=== PATIENT | female | born 1930 | race Hispanic/Latino ===

== ENCOUNTER 2016-07-09 12:07 | Inpatient (IN) | payer MEDICARE, OTHER ==
[2016-07-09 12:15] VITALS: BMI 17.2
[2016-07-09] MEDS ORDERED: guaiFENesin 200 mg/10 ml Syrup UD PO STA (12:37)
[2016-07-09] MEDS ORDERED: Ipratropium 0.02% Inhal Soln (0.5 mg/2.5 ml) UD IH STA ×2 (12:37)
[2016-07-09] MEDS ORDERED: Levalbuterol 1.25 MG/3 ML Inhal Soln UD IH STA ×2 (12:37)
--- NOTE | 2016-07-09 12:38 | ED PDOC ---
Arrival/HPI - General Chief Complaint: Shortness Of Breath Time Seen by Provider: 07/09/16 12:08 Historian: Patient - History of Present Illness Narrative History of Present Illness (Text): 07/09/16 12:34 86 year old female whose past medical history includes hypertension, coronary artery disease with stents s/p carotid endarterectomy, and remote history of breast cancer in remission presents to the emergency department with dyspnea on exertion, and lightheadedness worsening yesterday. She states she feels weak when she walks. She also reports cough with white phlegm. Patient states she vomited two hours ago. Denies fever, chills, abdominal pain, bloody stool or urine, or other symptoms. PMD: Dr. Wu Oncologist: Dr. Rios Time/Duration: < week Symptom Onset: Gradual Symptom Course: Unchanged Modifying Factors (Text): None Past Medical History - Provider Review Nursing Documentation Reviewed: Yes - Infectious Disease Hx of Infectious Diseases: None - Cardiac Hx Hypertension: Yes - Pulmonary Hx Respiratory Disorders: Yes Hx Bronchitis: Yes Hx Pneumonia: Yes - Neurological Hx Neurological Disorder: No - HEENT Hx HEENT Disorder: No (WEARS RX GLASSES) - Renal Hx Renal Disorder: No - Endocrine/Metabolic Hx Endocrine Disorders: No - Hematological/Oncological Hx Blood Disorders: Yes Hx Cancer: Yes (BREASTM CA CECAL CA) Hx Chemotherapy: Yes (and radiation 20 years ago) Other/Comment: RIGHT LIMB ALERT - Integumentary Hx Dermatological Disorder: No Other/Comment: RIGHT MATECTOMY - Musculoskeletal/Rheumatological Hx Falls: No - Gastrointestinal Hx Gastrointestinal Disorders: Yes (COLON CA,COLON RESECTION,) - Genitourinary/Gynecological Hx Genitourinary Disorders: No Hx Reproductive Disorders: No - Psychiatric Hx Psychophysiologic Disorder: No Hx Substance Use: No - Surgical History Hx Mastectomy: Yes (right) Other/Comment: POLYPS REMOVED COLON, VOCAL CHORD SX. - Anesthesia Hx Anesthesia: Yes Hx Anesthesia Reactions: No Hx Malignant Hyperthermia: No Family/Social History - Physician Review Nursing Documentation Reviewed: Yes Family/Social History: Unknown Family HX Smoking Status: Former Smoker Hx Alcohol Use: No Hx Substance Use: No Allergies/Home Meds Allergies/Adverse Reactions: Allergies Penicillins Allergy (Verified 07/09/16 12:15) RASH zolpidem Adverse Reaction (Verified 07/09/16 12:15) DIZZINESS Home Medications: Home Meds Medication Instructions Recorded Confirmed Aspirin 325 mg PO DAILY 04/23/15 06/18/15 Atorvastatin [Lipitor] 20 mg PO DAILY 06/14/15 06/18/15 amLODIPine [Norvasc] 10 mg PO DAILY 06/14/15 06/18/15 Review of Systems - Physician Review All systems were reviewed & negative as marked: Yes - Review of Systems Constitutional: absent: Fevers Respiratory: Cough Cardiovascular: LOZOYA Gastrointestinal: Vomiting. absent: Abdominal Pain, Hematochezia Genitourinary Female: absent: Dysuria, Hematuria Neurological: Other (Lightheadedness) Physical Exam Vital Signs Reviewed: Yes Vital Signs Temp Pulse Resp BP Pulse Ox 07/09/16 13:28 72 20 141/71 99 07/09/16 12:07 98.2 F 91 H 17 157/78 H 95 Temperature: Afebrile Blood Pressure: Normal Pulse: Regular Respiratory Rate: Normal Appearance: Positive for: Well-Appearing, Non-Toxic, Comfortable Pain Distress: None Mental Status: Positive for: Alert and Oriented X 3 - Systems Exam Head: Present: Atraumatic, Normocephalic Pupils: Present: PERRL Extroacular Muscles: Present: EOMI Conjunctiva: Present: Normal Mouth: Present: Moist Mucous Membranes Neck: Present: Normal Range of Motion Respiratory/Chest: Present: Decreased Breath Sounds, Other (Crackles at left base). No: Respiratory Distress, Accessory Muscle Use Cardiovascular: Present: Regular Rate and Rhythm, Normal S1, S2. No: Murmurs Abdomen: Present: Normal Bowel Sounds. No: Tenderness, Distention, Peritoneal Signs Back: Present: Normal Inspection Upper Extremity: Present: Normal Inspection. No: Cyanosis, Edema Lower Extremity: Present: Normal Inspection. No: Edema Neurological: Present: GCS=15, CN II-XII Intact, Speech Normal Skin: Present: Warm, Dry, Normal Color. No: Rashes Psychiatric: Present: Alert, Oriented x 3, Normal Insight, Normal Concentration Medical Decision Making ED Course and Treatment: Impression: 86 year old female whose past medical history includes hypertension , coronary artery disease with stents s/p carotid endarterectomy, and remote history of breast cancer in remission presents to the emergency department with dyspnea on exertion, and lightheadedness. Differential Diagnosis include but are not limited to: pneumonia vs copd vs pleural effiusion vs. cancer Plan: -- Chest X-ray, EKG -- Robitussin, Atrovent, Xopenex, Solumedrol -- Labs -- Reassess and disposition Prior Visits: Notes and results from previous visits were reviewed. Patient last seen in ED on 07/16/15 for bilateral leg pain and admitted for PVD (peripheral vascular disease), Claudication, intermittent. Progress Notes: 07/09/16 14:01 Patient with noted history. CT done recently is highly suggestive of malignancy. Exam with L basillar crackles with nodular opacity noted in region on CXR. Leukocytosis present as well - will need to treat clinically for COPD and pneumonia. She reports mild improvement with nebs in the ED with presenting hypoxia. Case discussed with Dr. Wu for admission to her service. She said to place the patient DNR/DNI. - Lab Interpretations Lab Results: 07/09/16 12:57 07/09/16 12:57 Lab Results 07/09/16 12:57: Sodium 135, Potassium 4.0, Chloride 101, Carbon Dioxide 26, Anion Gap 12, BUN 19, Creatinine 0.5, Est GFR ( Amer) > 60, Est GFR (Non- Af Amer) > 60, Random Glucose 133 H, Calcium 8.8, Magnesium 2.1, Total Bilirubin 1.1, AST 25, ALT 29, Alkaline Phosphatase 78, Lactate Dehydrogenase 445, Total Creatine Kinase 41, Troponin I < 0.01, NT-Pro-B Natriuret Pep 445, Total Protein 6.6, Albumin 3.8, Globulin 2.7, Albumin/Globulin Ratio 1.4, Lipase 41 07/09/16 12:57: PT 10.8, INR 1.00, APTT 25.2 07/09/16 12:57: WBC 12.5 H D, RBC 4.17, Hgb 13.1, Hct 37.9, MCV 90.9, MCH 31.4, MCHC 34.6, RDW 13.8, Plt Count 140, MPV 10.3, Gran % 91.1 H, Lymph % (Auto) 5.5 L, [place] % (Auto) 3.2, Eos % (Auto) 0.1 L, Baso % (Auto) 0.1, Gran # 11.35 H, Lymph # 0.7 L, [place] # 0.4, Eos # 0.0, Baso # 0.01 - RAD Interpretation Radiology Orders: 07/09/16 12:36 CHEST PORTABLE [RAD] Stat - EKG Interpretation EKG Interpretation (Text): EKG shows NSR at 85 BPM with PVC's, 1st degree AV block, left axis deviation, left bundle branch block, no st/t changes compared to previous on 06/13/15 Interpreted by ED Physician: Yes Type: 12 lead EKG - Medication Orders Current Medication Orders: Discontinued Medications Guaifenesin (Robitussin) 400 mg PO ONCE STA Stop: 07/09/16 12:38 Last Admin: 07/09/16 13:12 Dose: 400 mg Ipratropium [place] (Atrovent) 0.5 mg IH STAT STA Stop: 07/09/16 12:38 Last Admin: 07/09/16 12:10 Dose: 0.5 mg Ipratropium [place] (Atrovent) 0.5 mg IH STAT STA Stop: 07/09/16 12:38 Last Admin: 07/09/16 12:25 Dose: 0.5 mg Levalbuterol HCl (Xopenex) 1.25 mg IH STAT STA Stop: 07/09/16 12:38 Last Admin: 07/09/16 13:12 Dose: 1.25 mg Levalbuterol HCl (Xopenex) 1.25 mg IH STAT STA Stop: 07/09/16 12:38 Last Admin: 07/09/16 13:12 Dose: 1.25 mg Levofloxacin/Dextrose (Levaquin 750mg) 750 mg IVPB ONCE STA Stop: 07/09/16 13:20 Methylprednisolone (Solu-Medrol) 125 mg IVP STAT STA Stop: 07/09/16 12:38 Last Admin: 07/09/16 13:12 Dose: 125 mg - Scribe Statement The provider has reviewed the documentation as recorded by the Korey Tom Provider Scribe Attestation: All medical record entries made by the Korey were at my direction and personally dictated by me. I have reviewed the chart and agree that the record accurately reflects my personal performance of the history, physical exam, medical decision making, and the department course for this patient. I have also personally directed, reviewed, and agree with the discharge instructions and disposition. Disposition/Present on Arrival - Present on Arrival Any Indicators Present on Arrival: No History of DVT/PE: No History of Uncontrolled Diabetes: No Urinary Catheter: No History of Decub. Ulcer: No History Surgical Site Infection Following: None - Disposition Have Diagnosis and Disposition been Completed?: Yes Diagnosis: COPD exacerbation, Pneumonia Disposition: HOSPITALIZED Disposition Time: 14:00 Patient Plan: Admission Condition: FAIR Referrals: Arcelia Wu MD [Primary Care Provider] - Follow up with primary
[2016-07-09 12:57] LABS: ADD MANUAL DIFF? NO
[2016-07-09 13:05] LABS: BASO # 0.01 K/mm3 (0.0-2.0); BASO % 0.1 % (0.0-3.0); EOS % 0.1 % (1.5-5.0); GRAN # 11.35 (1.4-6.5); GRAN % 91.1 % (50.0-68.0); HEMATOCRIT 37.9 % (36.0-48.0); LYMPH # 0.7 (1.2-3.4); LYMPH % 5.5 % (22.0-35.0); MEAN CELL VOLUME 90.9 fL (80.0-105.0); MEAN CORPUSCULAR HEMOGLOBIN 31.4 pg (25.0-35.0); MEAN CORPUSCULAR HGB CONC 34.6 g/dl (31.0-37.0); MEAN PLATELET VOLUME 10.3 fl (7.0-11.0); MONO # 0.4 (0.1-0.6); MONO % 3.2 % (1.0-6.0); PLATELET COUNT 140 10^3/uL (120.0-450.0); RED CELL DISTRIBUTION WIDTH 13.8 % (11.5-14.5); WHITE BLOOD COUNT 12.5 10^3/ul (4.5-11.0)
--- NOTE | 2016-07-09 13:06 | RAD ---
HISTORY: sob COMPARISON: Radiograph from 07/16/[address] from 04/26/2016. FINDINGS: LUNGS: Hazy opacity overlying the right lower lung could be from the right breast prosthesis. The granuloma in the left upper lobe. Nodular opacity near the left costophrenic angle. PLEURA: No significant pleural effusion identified, no pneumothorax apparent.Biapical pleural parenchymal thickening noted. CARDIOVASCULAR: Stable. OSSEOUS STRUCTURES: The osseous structures demonstrate degenerative changes. Suture anchors in the left humeral head. VISUALIZED UPPER ABDOMEN: Upper abdomen is suboptimally evaluated. OTHER FINDINGS: Metal hardware. IMPRESSION: Nodular opacity near the left costophrenic angle. PA lateral chest radiograph recommended. Other findings as above.
[2016-07-09 13:11] LABS: PARTIAL THROMBOPLASTIN TIME 25.2 Seconds (23.7-30.8)
[2016-07-09 13:13] LABS: ALB/GLOB RATIO 1.4 (1.1-1.8); ALKALINE PHOSPHATASE 78 U/L (38-133); ALT/SGPT 29 U/L (7-56); AST/SGOT 25 U/L (15-39); BILIRUBIN,TOTAL 1.1 mg/dL (0.2-1.3); BLOOD UREA NITROGEN 19 mg/dL (7-21); CALCIUM 8.8 mg/dL (8.4-10.5); CARBON DIOXIDE 26 mmol/L (21-33); CHLORIDE 101 mmol/L (98-107); GFR AFRICAN-AMERICAN > 60; GLUCOSE,RANDOM 133 mg/dL (70-110); LIPASE 41 U/L (23-300); MAGNESIUM 2.1 mg/dL (1.7-2.2); SODIUM 135 mmol/L (132-148); TOTAL PROTEIN 6.6 g/dL (5.8-8.3)
[2016-07-09] MEDS ORDERED: levoFLOXacin 750 mg in D5W 150 ML BAG IVPB STA (13:19)
[2016-07-09 13:27] LABS: TROPONIN I < 0.01 ng/mL
[2016-07-09] MEDS ORDERED: Levalbuterol 0.63 MG/3 ML Inhal Soln UD IH PRN (16:20)
[2016-07-09] MEDS ORDERED: guaiFENesin 100 mg/5 ml Syrup UD PO PRN (16:20)
[2016-07-09] MEDS ORDERED: Arformoterol 15 mcg/2 ml Inh Sol IH SCH (20:00)
[2016-07-09] MEDS: Budesonide 0.25 mg/2 ml Inhal Susp UD IH SCH (20:01)
[2016-07-09] MEDS: Levalbuterol 0.63 MG/3 ML Inhal Soln UD IH SCH ×2 (20:01→23:49)
[2016-07-09] MEDS: Arformoterol 15 mcg/2 ml Inh Sol IH SCH (20:01)
[2016-07-09] MEDS: AMBIEN PO SCH (21:25)
--- NOTE | 2016-07-09 22:46 | HP ---
HISTORY OF PRESENT ILLNESS: This 86-year-old female was examined at her bedside in the presence of her son, Ochoa, and her case was reviewed with the patient's son and nurse in detail. The patient presented to the [facility] Emergency Room complaining of cough and congestion, shortness of breath, fatigue and deconditioning. She has a significant past medical history of old right breast cancer and mastectomy, history of colon cancer, history of outpatient CAT scan of the lung that shows findings consistent with possible carcinoma for which her Oncologist, Dr. Rios, has a arranged a biopsy at [facility] on 07/22, which the patient and son are aware and in agreement with. The patient has a longstanding history of atherosclerotic heart disease, chronic hypertension, peripheral vascular disease, hyperlipidemia, degenerative arthritis, chronic obstructive pulmonary disease and the patient remains a DNR/ DNI. The patient states that she came to the ER because of cough and shortness of breath. There she was given treatment with DuoNeb nebulizer, IV Solu-Medrol and IV antibiotics and she states that her presenting symptoms are somewhat improved. REVIEW OF SYSTEMS: CONSTITUTIONAL: She denied fever or chills. EYES: Denied change in visual acuity. EARS: Denied hearing loss. THROAT: Denied swallowing difficulty. NECK: Denied stiffness. CARDIOVASCULAR: Has stable atherosclerotic heart disease, chronic hypertension. LUNGS: Has a CAT scan performed by Dr. Rios, her Oncologist in the recent past that shows probable neoplasm, primary lung cancer versus metastatic disease to be determined by his scheduled biopsy at [facility] for this patient on . PULMONARY: She denies any hemoptysis or productive sputum. GASTROINTESTINAL: She has a history of colon cancer. No hematemesis, no melena. GENITOURINARY: No dysuria. SKIN: No rash. VASCULAR: Stable, peripheral vascular disease, no claudication. PSYCHOLOGICAL: Chronic anxiety and chronic insomnia. ENDOCRINOLOGICAL: No knowledge of diabetes. Chronic hyperlipidemia. HEMATOLOGICAL: No knowledge of night sweats or anemia. FAMILY HISTORY: Noncontributory. SOCIAL HISTORY: She is a nondrinker, non-IV drug misuser. A former smoker. ALLERGIES: SENSITIVITY TO PENICILLIN, WHICH REPORTEDLY SHOWS A RASH AND GENERIC AMBIEN, ZOLPIDEM, WHICH CAUSED DIZZINESS. OUTPATIENT MEDICATIONS: Baby aspirin, Lipitor, Norvasc, metoprolol tartrate and alupent inhaler. PHYSICAL EXAMINATION: VITAL SIGNS: Her anesthesia attending shows a normal sinus rhythm. Temperature is 98.8, respirations 20, pulse 80, and blood pressure 132/77 with a pulse ox of 97 % on room air. HEENT: Head is normocephalic, atraumatic. Eyes show no icterus. Ears clear. Throat not injected. NECK: Supple. CARDIOVASCULAR: Regular S1, S2. No pathological rubs, murmurs, or gallops. LUNGS: Have rhonchi and occasional wheezing that clear with coughing. No rales. ABDOMEN: Soft, nontender, no palpable organomegaly, no rebound, no guarding, no tenderness. EXTREMITIES: Show no clubbing, no cyanosis, no edema. SKIN: Warm and dry without rash. VASCULAR: Legs are warm to touch. PSYCHOLOGICAL: She is alert and oriented x 3. NEUROLOGIC: Grossly intact. LABORATORY DATA: Show white count 12,500, hemoglobin 13.1, hematocrit 37.9, platelets are 140,000. PT/INR 1.0, PTT 25.2. Sodium 135, K 4.0, chloride 101, bicarb 26, BUN 19, creatinine 0.5, random glucose is 133, magnesium level is normal at 2.1. All liver function testing is normal including bilirubin 1.1, AST 25, ALT 29, alkaline phosphatase 78. CPK was normal at 41. Troponin was less than 0.01. Lipase normal 41. Chest x-ray shows evidence of chronic obstructive pulmonary disease with nodular opacity near the left costophrenic angle. No pleural effusion identified. No pneumothorax. Her CT of the chest completed 04/26/2016, revealed multiple pulmonary and parenchymal findings suspicious for neoplasm, including a left upper lung spiculated mass and right lower lobe irregular, ill-defined mass measuring 2 x 0.9 cm with a left upper lobe noncalcified nodule 1 cm in size. As stated above this is well known to her Oncologist, Dr. Rios, who has set the patient up for a biopsy at [facility] on . The patient remains a DNR/DNI. IMPRESSION: An 86-year-old female with exacerbation of chronic obstructive pulmonary disease with comorbidities of stable atherosclerotic heart disease, chronic hypertension, peripheral vascular disease, stable; hyperlipidemia, chronic insomnia and anxiety neurosis. PLAN: The patient remains DNR/DNI. Son at bedside is aware and in agreement. She will be treated supportively with Xopenex inhalational therapy q.6 hours, Tylenol p.r.n. pain or temperature, Robitussin p.r.n. cough, Pulmicort inhalational therapy q.12, Brovana inhalational therapy q.12, Norvasc 10 mg p.o. daily, metoprolol tartrate 50 mg p.o. b.i.d., Lipitor 20 mg p.o. at bedtime , Zithromax 250 mg IV daily, Ecotrin 81 mg p.o. daily and name brand Ambien from home 5 mg p.o. at bedtime p.r.n. insomnia. The patient has had blood and sputum cultures requested. She was given IV Solu-Medrol in the ER. She will be given nasal O2, a heart healthy moderate carbohydrate diet. She will be assisted to the bathroom by the staff and remains on fall precautions. I will order physical therapy and a possible transitional care rehab evaluation and transfer and the patient will be treated supportively and compassionately with ultimate plan for discharge to home and medical follow up with her oncologist as an outpatient. All of this was reviewed in detail with the patient, her son and nurse. Greater than 50 minutes was spent in the care, coordination of care and outlining of care for this patient today. Arcelia Wu MD cc: [id number] TT: 07/09/2016 22:45:56 lee ANSARI
[2016-07-10] MEDS: Levalbuterol 0.63 MG/3 ML Inhal Soln UD IH SCH ×4 (01:12→20:25)
[2016-07-10] MEDS: Arformoterol 15 mcg/2 ml Inh Sol IH SCH ×2 (07:47→20:24)
[2016-07-10] MEDS: Budesonide 0.25 mg/2 ml Inhal Susp UD IH SCH ×2 (07:50→20:25)
[2016-07-10 08:52] VITALS: RESP 20
[2016-07-10] MEDS ORDERED: Azithromycin 250 MG in Sodium Chloride 0.9% 250 ML IVPB SCH (10:00)
[2016-07-10] MEDS ORDERED: levoFLOXacin 500 mg in D5W 500 MG/100 ML BAG IVPB SCH (10:00)
--- NOTE | 2016-07-10 10:25 | CARD ---
APPROVED REPORT EKG Measurement Heart [id number] <Conclusion> Sinus rhythm PVCs-new LBBB
--- NOTE | 2016-07-10 10:58 | RAD ---
HISTORY: copd COMPARISON: No prior. TECHNIQUE: Chest PA and lateral FINDINGS: LUNGS: Re- demonstration hazy opacity overlying the right lower lung could be from right breast prosthesis. Granuloma in the left upper lobe again seen. Nodular opacity near the left costophrenic angle not seen on the current evaluation. PLEURA: Biapical pleural parenchymal thickening noted. No pneumothorax. No pleural effusion. CARDIOVASCULAR: Stable. OSSEOUS STRUCTURES: The osseous structures demonstrate degenerative changes. VISUALIZED UPPER ABDOMEN: Upper abdomen is suboptimally evaluated. OTHER FINDINGS: Vascular calcifications IMPRESSION: Nodular opacity in the left costophrenic angle not clearly seen on the current evaluation. No focal airspace opacity noted. Right breast prosthesis.
--- NOTE | 2016-07-10 15:57 | CON ---
DATE: 07/10/2016 This is the patient's hospital consult on the medical floor. For Dr. Rios. CHIEF COMPLAINT: Shortness of breath, congestion, fatigue. HISTORY OF PRESENT ILLNESS: The patient is an 86-year-old female, recently seen in the office by Dr. Rios with recently diagnosed changes on the CAT scan consistent with possible carcinoma, for whic h she is to have a biopsy at [facility] in approximately 2 weeks' time. With this, the patient is seen with the son at the bedside, feeling better after nebulizer treatments were begun. She also had a schedu led appointment with Dr. Hernadez for later this month. We will ask that Dr. Hernadez consult here at th e patient's request, pulmonary. Otherwise, the patient reports that she is breathing better. She al so has hoarseness of her voice after history of vocal cord polyps? ALLERGIES: PENICILLIN AND AMBIEN. MEDICATIONS: Include Ecotrin, Lipitor, Norvasc, metoprolol with an albuterol inhaler. FAMILY HISTORY AND SOCIAL HISTORY: Noncontributory. Nonsmoker, non-ethanolic. She is a former smok er, however. The patient's son is at the bedside, alive and well, visiting from [place]. REVIEW OF SYSTEMS: Essentially negative to questioning except as above. PAST MEDICAL HISTORY: Also that of a history of cancer of the right breast, hypertension, DJD, COPD, ASCVD, status post resection for colon cancer, anxiety, insomnia. The patient did have a chest x-ray done yesterday. It was read as nodular opacity in the left costop hrenic angle, PA and lateral chest recommended. Chest x-ray was done today. It was read as nodular opacity left costophrenic angle, not clearly seen on current evaluation, no focal airspace opacity id entified, right breast prosthesis. It should be noted the patient had a CT scan of her chest on 04/26, which was read as multiple pulmonary parenchymal findings suspicious for neoplasm, including l eft upper lobe spiculated mass, which has increased in size with new findings in both lungs, right lo wer lobe and left upper lobe, with a well-defined noncalcified pulmonary nodule appearing in the left upper lobe, less than 1 cm, not apparent on previous CT done 05/2012. OBJECTIVE AND PHYSICAL EXAMINATION: VITAL SIGNS: Temperature 97.6, pulse 73, respirations 20, blood pressure 137/62, pulse ox 100%. HEENT: Unremarkable. The patient does have hoarseness of her voice. NECK: Supple. HEART: Regular rate. LUNGS: Minimal decreased breath sounds, occasional expiratory wheeze, left greater than right. ABDOMEN: Soft, nontender. EXTREMITIES: No edema. SKIN: Warm, dry and clear. NEUROLOGIC: Awake, alert, and oriented x 3. The patient's labs were done, white blood cell count yesterday was 12.5, hemoglobin 13.1, hematocrit 37.9, platelet count of 140,000 with a chem metabolic panel completely within normal limits except fo r nonfasting glucose of 133. Her INR yesterday was 1.0. ASSESSMENT: Exacerbation of chronic obstructive pulmonary disease with new suspected lung cancer, ar teriosclerotic cardiovascular disease, hypertension, peripheral vascular disease, history of cancer o f the breast, history of cancer of the colon, anxiety, hypertension. PLAN: After conversation with Dr. Rios, to continue with present medical regimen as per Dr. Wu with a consult for Dr. Hernadez at the patient's request with followup eventually for biopsy at [facility] on 07/22 once she improves here for her presenting diagnosis. The patient now reports that she was on a ntibiotics prior to her admission. We will monitor clinically and with labs. Prognosis for this pat ient is guarded. Dariel Swanson MD cc: [id number] TT: 07/10/2016 15:57:05 Confirmation # [id number] Dictation # [id number]
[2016-07-10] MEDS: Aztreonam 1 Gm in NS 100mL 100 ML IVPB SCH ×2 (18:36→21:54)
--- NOTE | 2016-07-10 19:48 | PN ---
DATE: 07/10/2016 SUBJECTIVE: This 86-year-old female was examined at the bedside where she stated she was feeling better since admission with the institution of IV antibiotics and pulmonary toiletry. The patient rested comfortably last night. She denies any chest pain, fever, chills, shortness of breath or hemoptysis. PHYSICAL EXAMINATION: VITAL SIGNS: On physical exam she is in a normal sinus rhythm on the monitor. Her temperature is 97.6, respirations 20, pulse 80, and blood pressure 137/62 with a pulse ox of 100% on room air. HEAD: Normocephalic, atraumatic. EYES: Show no icterus. EARS: Clear. THROAT: Noninjected. NECK: Supple. HEART: S1, S2. LUNGS: Have occasional rhonchi that clear with coughing. ABDOMEN: Soft. EXTREMITIES: No edema. SKIN: Without rash. NEUROLOGIC: Intact. PSYCHOLOGICAL: Alert. VASCULAR: Legs warm to touch. LABORATORY DATA: Her admission labs show white count 12,500, hemoglobin 13.1, hematocrit 37.9, platelets 140,000. PT/INR 1.0, PTT 25.2, Sodium 135, K 4.0, chloride 101, bicarb 26, BUN 19, creatinine 0.5, random blood sugar 133. All liver function testing was normal including bilirubin 1.1, AST 25, ALT 29, alkaline phosphatase 78. Troponin was less than 0.01. Lipase was 41. Chest x- ray was repeated this morning with a PA and lateral, showing that the nodular opacity near the left costophrenic angle was not seen on the current evaluation and no focal airspace opacities were noted. IMPRESSION: This is an 86-year-old female with probable carcinoma on recent outpatient CT of the lung under the direction of her oncologist, Dr. Rios, for which she is scheduled for a biopsy at [facility] on 07/22/2016. The patient has a history of right breast cancer and mastectomy, history of colon cancer and resection, rule out primary lung cancer, rule out metastatic disease to the lung , now with exacerbation of chronic obstructive pulmonary disease and comorbidities of atherosclerotic heart disease, stable; chronic hypertension, hyperlipidemia, stable peripheral vascular disease, degenerative arthritis, anxiety neurosis and insomnia. PLAN: At present is to continue Xopenex inhalational therapy q.6 hours. She has been started on Solu-Medrol 40 mg IV q.12 by pulmonary. She will continue on Pulmicort inhalational therapy, Brovana inhalational therapy, Norvasc 10 mg p.o. daily, metoprolol tartrate 50 mg p.o. b.i.d., Lipitor 20 mg p.o. at bedtime , and Ecotrin 81 mg p.o. daily. She has been ordered to receive Azactam 1 gram IV q.8 hours as well as doxycycline 100 mg p.o. q.12 hours by pulmonary in the setting of PENICILLIN ALLERGY, and she will be evaluated for transitional care rehabilitation while being kept on fall precautions and bathroom privileges with assistance. She is also receiving a heart healthy diet. Physical therapy for reconditioning has been ordered. She remains a DNR/DNI and her overall prognosis, though stable at present, remains guarded. Greater than fifty minutes was spent in the care, review of care and discussion of care with the patient, her nurse, family and coconsultants today. Her overall prognosis remains poor. Arcelia Wu MD cc: [id number] TT: 07/10/2016 19:47:26 Confirmation # [id number] Dictation # [id number] [id number]
--- NOTE | 2016-07-10 20:12 | CON ---
DATE: 07/10/2016 REFERRING PHYSICIAN: Dr. Wu. REASON FOR CONSULT: Chronic lung disease, pulmonary tumor, short of breath and cough. HISTORY OF PRESENT ILLNESS: This is an 86-year-old female with past medical history significant for right breast cancer, hypertension, chronic obstructive lung disease, history of colon cancer. Recent ly had a CAT scan done as an outpatient and found to have a new tumor in the lung. Scheduled in [facility] for possible biopsy. Comes into Emergency Room with cough and shortness of breath. According to the patient, she has had these symptom for almost more than 2-3 weeks. Failed outpatient antibiotic yaya tment. Since admission, started on bronchodilators, feels better, but still having cough and shortne ss of breath. No hemoptysis. No vomiting, no hematuria, no diarrhea reported. PAST MEDICAL HISTORY: History of colon cancer requiring resection in the remote past, right breast c ancer, lung tumor, chronic obstructive lung disease. ALLERGIES: AMBIEN, PENICILLIN. SOCIAL HISTORY: She stopped smoking many years ago. MEDICATIONS: She is on Zithromax 250 mg daily, Brovana 15 mcg inhaled twice a day, Ecotrin 81 mg calderon ly. She is getting home meds which are Ambien 10 mg at bedtime p.r.n., Lipitor 20 mg daily, metoprol ol tartrate 50 mg twice a day, Norvasc 10 mg daily, Pulmicort inhaled twice a day, Robitussin 100 mg q. 6 hours p.r.n. for cough, Tylenol p.r.n., Xopenex inhaler q. 6 hours. REVIEW OF SYSTEMS: No headache, not much rhinitis, has thick sputum production with a cough unable t o clear. No nausea, no vomiting, no diarrhea, no dysuria. PHYSICAL EXAMINATION: GENERAL: Sitting up in bed, mild distress secondary to cough. VITAL SIGNS: Temperature is 98, heart rate is 71, respiratory rate is 20, blood pressure 111/41 and pulse ox 94% on room air. HEENT: Small oral cavity. Crowded airway. NECK: Supple, no JVD. LUNGS: She has scattered rhonchi, has 1/3 of crackles on the left side. HEART: S1, S2. ABDOMEN: Soft, nontender. No organomegaly. EXTREMITIES: There is no edema. NEUROLOGIC: Awake, alert, follows simple commands. LABORATORY DATA: Shows hemoglobin 13.1, hematocrit 37.9, WBC 12.5, platelet is 140. INR 1.0, PTT is 25. Sodium 135, potassium 4.0, chloride 101, bicarbonate 26, BUN 19, creatinine 0.5, glucose 133, c alcium 8.8, magnesium 2.1, total bilirubin . AST 25, ALT 29, alkaline phosphatase is 78, tropon in is less than 0.01, total protein 6.6, albumin 3.8, lipase is 41. MICROBIOLOGY: Blood cultures and sputum culture, so far there is no growth. Had a chest x-ray done, which shows a nodular opacity of the left costophrenic angle. CAT scan of the chest done 03/2016, w [facility] showed multiple pulmonary parenchymal findings suspicious for neoplasm, including left upper lob e spiculated mass. There is also an infiltrate in the right lower lobe. IMPRESSION AND PLAN: Lung tumor, pneumonia cannot be ruled out, probably metastatic disease. Also ch ronic obstructive lung disease, hypertension, peripheral vascular disease, history of breast cancer, history of colon cancer, anxiety and hypertension. I agree with the present treatment. I spoke to t he patient and patient's son at bedside. All the questions were answered. We will discontinue Zithr omax, patient failed as an outpatient. I will start her on cefepime 1 g IV q. 12 hours. Continue in haled bronchodilator. We will add Solu-Medrol 40 mg q. 12 hours. Gastric prophylaxis, deep venous t hrombosis prophylaxis. We will get speech therapy to see her to ensure there is no oropharyngeal dys phagia with aspiration. Procalcitonin level in the morning. The patient already scheduled at [facility] fo r biopsy next week or so. Will follow with you. Kenia Hernadez MD cc: [phone] TT: 07/10/2016 20:12:07 Confirmation # [id number] Dictation # [id number] ln
[2016-07-10] MEDS: AMBIEN PO SCH (21:55)
[2016-07-10] MEDS ORDERED: MethylPREDNISolone 40 mg Vial IVP SCH (22:00)
[2016-07-11] MEDS: Levalbuterol 0.63 MG/3 ML Inhal Soln UD IH SCH ×2 (02:13→08:07)
--- NOTE | 2016-07-11 03:58 | CP.PCM.PN ---
Subjective - Date & Time of Evaluation Date of Evaluation: 07/11/16 Time of Evaluation: 03:57 - Subjective Subjective: As per nurse patient has been screaming, kicking, scratching her. I tried to talk to patient .She seems to be confused and disoriented. Medical record was reviewed. 86 year old woman admitted with cough,congestion, sob, fatigue . PMH : right breast cancer, mastectomy, coloon cancer, ashd, hypertension, PVD ,HLD, DHD, COPD. Objective - Vital Signs/Intake and Output Vital Signs (last 24 hours): Temp Pulse Resp BP Pulse Ox 97.6 F 74 20 111/41 L 94 L 07/10/16 16:50 07/10/16 22:00 07/10/16 16:50 07/10/16 17:24 07/10/16 16:50 Intake and Output: 07/10/16 07/11/16 18:59 06:59 Intake Total 540 Balance 540 - Medications Medications: Current Medications Acetaminophen (Tylenol 325mg Tab) 650 mg PO Q6H PRN PRN Reason: pain or fever >101 Amlodipine Besylate (Norvasc) 10 mg PO DAILY [facility] Last Admin: 07/10/16 09:33 Dose: 10 mg Arformoterol Tartrate (Brovana) 15 mcg IH [id number] [facility] Last Admin: 07/10/16 20:24 Dose: 15 mcg Aspirin (Ecotrin) 81 mg PO DAILY [facility] Last Admin: 07/10/16 09:33 Dose: 81 mg Atorvastatin Calcium (Lipitor) 20 mg PO [facility] Last Admin: 07/10/16 21:55 Dose: 20 mg Budesonide (Pulmicort Respules) 0.25 mg IH [id number] [facility] Last Admin: 07/10/16 20:25 Dose: 0.25 mg Doxycycline Hyclate (Doryx) 100 mg PO Q12 [facility] PRN Reason: Protocol Last Admin: 07/10/16 21:54 Dose: 100 mg Guaifenesin (Robitussin) 100 mg PO Q6H PRN PRN Reason: Cough Home Med (Home Med) 1 unit PO [facility] Last Admin: 07/10/16 21:55 Dose: Not Given Levalbuterol HCl (Xopenex) 0.63 mg IH [id number] [facility] Last Admin: 07/11/16 02:13 Dose: 0.63 mg Methylprednisolone (Solu-Medrol) 40 mg IVP Q12 [facility] Last Admin: 07/10/16 21:55 Dose: 40 mg Metoprolol Tartrate (Lopressor) 50 mg PO BRKDIN [facility] Last Admin: 07/10/16 17:24 Dose: 50 mg - Labs Labs: PT 10.8 Seconds (9.9-11.8) 07/09/16 12:57 INR 1.00 (0.93-1.08) 07/09/16 12:57 APTT 25.2 Seconds (23.7-30.8) 07/09/16 12:57 - Constitutional Appears: Well, No Acute Distress - Head Exam Head Exam: ATRAUMATIC, NORMAL INSPECTION, NORMOCEPHALIC - Eye Exam Eye Exam: Normal appearance - ENT Exam ENT Exam: Normal External Ear Exam - Neck Exam Neck Exam: Normal Inspection - Respiratory Exam Respiratory Exam: NORMAL BREATHING PATTERN - Cardiovascular Exam Cardiovascular Exam: absent: JVD - GI/Abdominal Exam GI & Abdominal Exam: absent: Distended - Rectal Exam Rectal Exam: Deferred - Extremities Exam Extremities Exam: Normal Inspection - Back Exam Back Exam: NORMAL INSPECTION - Neurological Exam Neurological Exam: Altered - Psychiatric Exam Psychiatric exam: Agitated - Skin Skin Exam: Normal Color Assessment and Plan - Assessment and Plan (Free Text) Assessment: A/P:Agitation.-on steroid, -. COPD. HTN. Hyperlipidemia. Anxiety. Rex restraint ordered. Continue present management.
[2016-07-11 06:36] LABS: HEMATOCRIT 35.2 % (36.0-48.0); MEAN CELL VOLUME 90.7 fL (80.0-105.0); MEAN CORPUSCULAR HEMOGLOBIN 30.9 pg (25.0-35.0); MEAN CORPUSCULAR HGB CONC 34.1 g/dl (31.0-37.0); MEAN PLATELET VOLUME 10.5 fl (7.0-11.0); PLATELET COUNT 150 10^3/uL (120.0-450.0); RED CELL DISTRIBUTION WIDTH 14.4 % (11.5-14.5); WHITE BLOOD COUNT 14.1 10^3/ul (4.5-11.0)
[2016-07-11 06:46] LABS: ADD MANUAL DIFF? YES
[2016-07-11 07:04] LABS: ALB/GLOB RATIO 1.3 (1.1-1.8); ALKALINE PHOSPHATASE 66 U/L (38-133); ALT/SGPT 29 U/L (7-56); AST/SGOT 22 U/L (15-39); BILIRUBIN,TOTAL 0.6 mg/dL (0.2-1.3); BLOOD UREA NITROGEN 35 mg/dL (7-21); CARBON DIOXIDE 26 mmol/L (21-33); CHLORIDE 103 mmol/L (98-107); GFR AFRICAN-AMERICAN > 60; GLUCOSE,RANDOM 164 mg/dL (70-110); POTASSIUM 3.8 mmol/L (3.6-5.0); SODIUM 137 mmol/L (132-148); TOTAL PROTEIN 6.1 g/dL (5.8-8.3)
[2016-07-11] MEDS: Arformoterol 15 mcg/2 ml Inh Sol IH SCH (08:07)
[2016-07-11] MEDS: Budesonide 0.25 mg/2 ml Inhal Susp UD IH SCH (08:07)
[2016-07-11 08:30] VITALS: BP 155/60; PULSE 71
[2016-07-11 10:00] VITALS: TEMP 97.9; O2SAT 97
[2016-07-11 10:00] LABS: BAND 2 % (0-2); NEUTROPHIL 94 % (50.0-70.0)
[2016-07-11 10:01] LABS: ANISOCYTOSIS 1+; PLATELET ESTIMATE NORMAL (NORMAL)
--- NOTE | 2016-07-11 18:40 | DS ---
FINAL DIAGNOSES: Exacerbation of chronic obstructive pulmonary disease, improved; lung mass, stable; history of breast cancer and right mastectomy, history of colon cancer, chronic hypertension, hyperlipidemia, chronic insomnia. DISPOSITION: Home with son providing 24-hour supervision. DISCHARGE MEDICATION: Includes Norvasc 10 mg p.o. daily, metoprolol tartrate 50 mg p.o. b.i.d., Lipitor 20 mg p.o. at bedtime, Ecotrin 81 mg p.o. daily and ProAir inhaler 2 puffs q.6 hours p.r.n. shortness of breath. SUMMARY: This 86-year-old female presented to the [facility] Emergency Room complaining of cough and congestion in the setting of an exacerbation of chronic obstructive pulmonary disease. She was treated with parenteral antibiotic, pulmonary toiletry with Xopenex inhalational therapy as well as Pulmicort inhalational therapy and Brovana inhalational therapy. She had blood cultures that showed no growth. She felt dramatically better with these interventions. She had an episode of agitation and confusion after IV Solumedrol as ordered by pulmonary, which was discontinued and the patient was cleared for discharge to home as desired by herself and her son. At the time of her discharge, her vital signs were a temperature 97.9, respirations 20, pulse 71, and blood pressure 155/60 with a pulse ox of 97% on room air. Labs showed white count 14,100 status post steroids, hemoglobin 12, hematocrit 35.2, platelets 150,000. PT/INR 1.0, PTT 25.2. Sodium 137, K 3.8, chloride 103, bicarbonate 26, BUN 35, creatinine 0.6, random blood sugar 133. All liver function testing was normal including bilirubin 0.6, AST 22, ALT 29 and alk phos 68. Lipase was normal at 41. Chest x-ray showed no active infiltrate and signs and symptoms were consistent with chronic obstructive pulmonary disease. The patient remains a DNR/DNI. She is scheduled for an outpatient lung biopsy of a possible carcinomatous mass in her lung as noted on recent CT of the chest. She discussed her desire for a conservative compassionate course of therapy and her overall prognosis remain guarded. All of this was discussed in detail with the patient and her son at the bedside and she will be monitored closely as an outpatient and has been advised for any change in signs and symptoms to present directly to the [facility] Emergency Room. She will follow up with her clinical dermatologist and oncologist as an outpatient as well. Arcelia Wu MD cc: [phone] TT: 07/11/2016 18:39:54 lee ANSARI
== END 2016-07-11 11:44 | disposition home or self-care (01) | DRG 192 ==
LOC: ED 12:07 → ERH 14:11 → 3RNO 16:26
PROVIDERS: ADMIT Internal Medicine; ATTEND Internal Medicine
DX: J44.1 Chronic obstructive pulmonary disease with (acute) exacerbation (principal); I73.9 Peripheral vascular disease, unspecified; I10 Essential (primary) hypertension; E78.5 Hyperlipidemia, unspecified; I25.10 Atherosclerotic heart disease of native coronary artery without angina pectoris; F51.04 Psychophysiologic insomnia; F41.1 Generalized anxiety disorder; M19.90 Unspecified osteoarthritis, unspecified site; R91.8 Other nonspecific abnormal finding of lung field; Z66 Do not resuscitate; R45.1 Restlessness and agitation; T38.0X5A Adverse effect of glucocorticoids and synthetic analogues, initial encounter; Z85.3 Personal history of malignant neoplasm of breast; Z85.038 Personal history of other malignant neoplasm of large intestine; Z95.5 Presence of coronary angioplasty implant and graft; Z87.891 Personal history of nicotine dependence

== ENCOUNTER 2016-07-29 12:24 | Inpatient (IN) | payer MEDICARE, OTHER ==
[2016-07-29 12:52] LABS: ADD MANUAL DIFF? NO
[2016-07-29 12:59] LABS: BASO # 0.04 K/mm3 (0.0-2.0); BASO % 0.5 % (0.0-3.0); EOS # 0.1 (0.0-0.7); EOS % 1.2 % (1.5-5.0); GRAN # 6.13 (1.4-6.5); GRAN % 72.9 % (50.0-68.0); HEMATOCRIT 41.5 % (36.0-48.0); LYMPH # 1.7 (1.2-3.4); LYMPH % 19.7 % (22.0-35.0); MEAN CELL VOLUME 92.6 fL (80.0-105.0); MEAN CORPUSCULAR HGB CONC 33.5 g/dl (31.0-37.0); MEAN PLATELET VOLUME 10.5 fl (7.0-11.0); MONO # 0.5 (0.1-0.6); MONO % 5.7 % (1.0-6.0); PLATELET COUNT 212 10^3/uL (120.0-450.0); RED CELL DISTRIBUTION WIDTH 14.3 % (11.5-14.5); WHITE BLOOD COUNT 8.4 10^3/ul (4.5-11.0)
[2016-07-29 13:05] LABS: INR 1.02 (0.93-1.08); PARTIAL THROMBOPLASTIN TIME 27.4 Seconds (23.7-30.8)
[2016-07-29 13:06] LABS: BLOOD UREA NITROGEN 20 mg/dL (7-21); CALCIUM 9.7 mg/dL (8.4-10.5); CARBON DIOXIDE 30 mmol/L (21-33); CHLORIDE 104 mmol/L (98-107); GFR AFRICAN-AMERICAN > 60; GLUCOSE,RANDOM 95 mg/dL (70-110); POTASSIUM 4.9 mmol/L (3.6-5.0); SODIUM 141 mmol/L (132-148)
--- NOTE | 2016-07-29 14:08 | CP.SDSHP ---
Same Day Surgery H & P - History Proposed Procedure: Cat scan guided lung biopsy Pre-Op Diagnosis: Breast Ca - Previous Medical/Surgical History Cardiac: Hypertension, ASHD/CAD (Had angioplasty) Pulmonary: Smoking (smoked 1PPD x 33 years,quit in the early 80s.), Cough/URI, Other (Pt has persistent cough and congestion for about 3 weeks,history or pneumonia) Misc: Other (Hyperlipidemia,history of R breast Ca,Colon Ca and Neuropathy) Pain: 0. No Pain Comments: Cat scan of the chest done a few months ago showed new abnormal findings on both sides,pt was advised biopsy. Previous Surgical History: Colonoscopy. Colon resection. R Mastectomy followed by reconstructive surgery. R Carotid surgery. Vocal Cord polypectomy - Allergies Allergies: Allergies Penicillins Allergy (Severe, Verified 07/27/16 09:12) RASH IV SOLUMEDROL Adverse Reaction (Severe, Uncoded 07/27/16 09:12) CONFUSION/AGITATION - Physical Exam General Appearance: Elderly asthenic female Vital Signs: Vital Signs 07/29/16 12:45 Temperature 97.5 F L Pulse Rate 64 Respiratory 18 Rate Blood Pressure 167/48 H O2 Sat by Pulse 93 L Oximetry Mental Status: Alert & Oriented x3 Neuro: WNL Heart: WNL Lungs: Other (crepitations noted in the lower lung cates and adventitios breath sounds on the R side.) - {Optional Preform as Required} Breast: Other (S/P R mastectomywith reconstructive surgery.) Abdomen: WNL Integument: Other (Surgical scar noted on the R side of the neck.) - Impression Impression: Breast Ca - Date & Time Date: 07/29/16 Time: 14:26 Short Stay Discharge - Short Stay Discharge Admitting Diagnosis/Reason for Visit: BREAST CA C50.911 Disposition: HOME/ ROUTINE Referrals: Arcelia Wu MD [Primary Care Provider] -
[2016-07-29] MEDS ORDERED: Midazolam 2 MG/2 ML VIAL ONE (15:02)
[2016-07-29] MEDS ORDERED: Oxycodone/Acetaminophen 5/325 mg Tab PO PRN ×2 (16:02→19:05)
[2016-07-29] MEDS ORDERED: Sodium Chloride 0.45% 1,000 ML IV SCH ×2 (16:15→19:15)
--- NOTE | 2016-07-29 19:26 | RAD ---
EXAM: XR Chest, 1 View CLINICAL HISTORY: 86 years old, female; Injury or trauma; Injury Post lt lung biopsy; Initial encounter; Puncture; Not specified; Injury date: 07/29/2016; Injury details: Pt had lt lung biopsy; Additional info: Lt lung bx TECHNIQUE: Frontal view of the chest. EXAM DATE/TIME: 07/29/2016 5:00 PM COMPARISON: CT GUIDED LUNG BIOPSY 07/29/2016 3:28:28 PM FINDINGS: Heart, mediastinum and jessica: The heart is mildly enlarged. There calcifications in the aortic wall. Hilar contours are unremarkable Vascularity: Pulmonary vascularity is normal. Lungs: The lungs are mildly hyperinflated. There is increased opacity over the right midlung zone secondary to breast prosthesis. There is a subtle left upper lobe nodular opacity Pleural spaces: There is a small left apical pneumothorax. There are no effusions. Bony structures: Bony structures are osteopenic. Postsurgical changes in the left humeral head. IMPRESSION: Small left apical pneumothorax; subtle left upper lobe nodule Additional findings as described above.
--- NOTE | 2016-07-29 22:07 | CT ---
PROCEDURE: CT guided left upper lobe lung biopsy. HISTORY: 2.5 cm peripheral left upper lobe lung opacity. Evaluate for metastatic disease. PHYSICIAN(S): Tripp Mendes MD. TECHNIQUE: The relative risks and indications of the procedure were explained to the patient and her family and consent obtained. The patient was placed supine on the CT scanner and preliminary images through the upper lungs obtained. Conscious sedation and monitoring were provided throughout the procedure by a nurse. A 2.5 cm noncalcified opacity in the left upper lobe laterally.. A left lateral approach was selected and the area prepped and draped in the usual sterile fashion. 1% Xylocaine was used to anesthetize the skin and soft tissues. A ane gauge guiding needle was advanced into the 2.5 cm peripheral opacity in the left upper lobe. Its position was confirmed with CT. Using coaxial technique, multiple core biopsies were obtained. The postprocedure images demonstrated a tiny pneumothorax. The patient was asymptomatic and follow-up chest x-ray was ordered. IMPRESSION: 1. CT-guided left upper lobe lung biopsy as described above.
--- NOTE | 2016-07-29 22:10 | CT ---
PROCEDURE: CT-guided left chest tube placement HISTORY: Status post left upper lobe lung biopsy. Left pneumothorax with development of chest pain and shortness of breath. Needs chest tube. PHYSICIAN(S): Tripp Mendes MD. TECHNIQUE: The relative risks and indications for the procedure were explained to the patient and her family and informed consent obtained. The patient was placed in a supine position on the CT scanner and preliminary images through the for lung performed. This revealed a tiny left anterior pneumothorax. Given the patient's extensive emphysema and significant symptoms, it was elected to place a chest tube. Under CT guidance a 19 gauge needle was advanced into the left pneumothorax anteriorly. 0.035 guidewire was coiled in the left pleural space. Sequential dilatation was performed with subsequent placement of 10 Czech left chest tube anteriorly. The pneumothorax was evacuated the chest tube secured and placed to suction. The patient tolerated the procedure well. IMPRESSION: 1. CT-guided left anterior chest tube placement as described above
[2016-07-30] MEDS: Aspirin 325 mg EC Tablets PO SCH (09:50)
[2016-07-30] MEDS: Dextrose 5%/0.45% NS 1,000 ML IV SCH (13:05)
[2016-07-30] MEDS: Levalbuterol 0.63 MG/3 ML Inhal Soln UD IH SCH ×2 (14:00→19:23)
[2016-07-30] MEDS ORDERED: AMBIEN 10MG PO PRN ×2 (17:45→18:16)
[2016-07-30] MEDS: Budesonide 0.25 mg/2 ml Inhal Susp UD IH SCH (19:22)
[2016-07-30] MEDS: Arformoterol 15 mcg/2 ml Inh Sol IH SCH (19:22)
[2016-07-30] MEDS ORDERED: Arformoterol 15 mcg/2 ml Inh Sol IH SCH (20:00)
[2016-07-30] MEDS: guaiFENesin 100 mg/5 ml Syrup UD PO PRN (20:41)
[2016-07-31] MEDS ORDERED: Levalbuterol 1.25 MG/3 ML Inhal Soln UD IH STA ×2 (03:38→06:14)
--- NOTE | 2016-07-31 03:43 | CP.PCM.PN ---
Subjective - Date & Time of Evaluation Date of Evaluation: 07/31/16 Time of Evaluation: 03:39 - Subjective Subjective: Draft. Patient was seen at bedside because her pulse ox was 79% on 2L/min which went upto 95 % on 5L/min. She told the nurse that she did not feel well. She has no sob, chest pain , nausea,sweating ,palpitations. States that she has been incontinent of urine. States that earlier , she felt some noise in her throat. Received Xopenex 0.63 mg, neb treatment by RT a few minutes ago. Last Vital Signs 3 Temp 98.2 F 07/31/16 03:00 Pulse 85 07/31/16 03:00 Resp 20 07/31/16 03:00 BP 157/65 H 07/31/16 03:00 Pulse Ox 80 L 07/31/16 03:00 Medical record was reviewed. Objective - Vital Signs/Intake and Output Vital Signs (last 24 hours): Temp Pulse Resp BP Pulse Ox 98.2 F 85 20 157/65 H 80 L 07/31/16 03:00 07/31/16 03:00 07/31/16 03:00 07/31/16 03:00 07/31/16 03:00 Intake and Output: 07/30/16 07/31/16 18:59 06:59 Intake Total 560 300 Output Total 200 Balance 560 100 - Medications Medications: Current Medications Acetaminophen (Tylenol 325mg Tab) 650 mg PO Q4H PRN PRN Reason: Pain, Mild (1-3) Amlodipine Besylate (Norvasc) 10 mg PO DAILY [facility] Last Admin: 07/30/16 09:51 Dose: 10 mg Arformoterol Tartrate (Brovana) 15 mcg IH [id number] [facility] Last Admin: 07/30/16 19:22 Dose: 15 mcg Aspirin (Ecotrin) 325 mg PO DAILY [facility] Last Admin: 07/30/16 09:50 Dose: 325 mg Atorvastatin Calcium (Lipitor) 20 mg PO HS [facility] Last Admin: 07/30/16 21:49 Dose: 20 mg Budesonide (Pulmicort Respules) 0.25 mg IH [id number] [facility] Last Admin: 07/30/16 19:22 Dose: 0.25 mg Guaifenesin (Robitussin) 100 mg PO BID PRN PRN Reason: Cough Last Admin: 07/30/16 20:41 Dose: 100 mg Home Med (Home Med) 0.5 unit PO HS PRN PRN Reason: Insomnia Dextrose/Sodium Chloride (Dextrose 5%/0.45% Ns 1000 Ml) 1,000 mls @ 60 mls/hr IV .[id number] [facility] Last Admin: 07/30/16 13:05 Dose: 60 mls/hr Levalbuterol HCl (Xopenex) 0.63 mg IH TIDRESP [facility] Last Admin: 07/30/16 19:23 Dose: 0.63 mg Levalbuterol HCl (Xopenex) 1.25 mg IH STAT STA Stop: 07/31/16 03:39 Metoprolol Tartrate (Lopressor) 50 mg PO BRKDIN [facility] Last Admin: 07/30/16 17:16 Dose: 50 mg Ondansetron HCl (Zofran Inj) 4 mg IVP Q6H PRN PRN Reason: Nausea/Vomiting Last Admin: 07/30/16 09:51 Dose: 4 mg Pantoprazole Sodium (Protonix Inj) 40 mg IVP DAILY [facility] Last Admin: 07/30/16 13:03 Dose: 40 mg - Labs Labs: 07/29/16 12:30 07/29/16 12:30 PT 11.0 Seconds (9.9-11.8) 07/29/16 12:30 INR 1.02 (0.93-1.08) 07/29/16 12:30 APTT 27.4 Seconds (23.7-30.8) 07/29/16 12:30 - Constitutional Appears: Well, No Acute Distress - Head Exam Head Exam: ATRAUMATIC, NORMAL INSPECTION, NORMOCEPHALIC - Eye Exam Eye Exam: Normal appearance - ENT Exam ENT Exam: Normal External Ear Exam - Neck Exam Neck Exam: Normal Inspection - Respiratory Exam Respiratory Exam: Decreased Breath Sounds (on left side.) Additional comments: Chest tube : Intact. - Cardiovascular Exam Cardiovascular Exam: REGULAR RHYTHM. absent: JVD - GI/Abdominal Exam GI & Abdominal Exam: absent: Distended - Rectal Exam Rectal Exam: Deferred - Extremities Exam Extremities Exam: Normal Inspection - Back Exam Back Exam: NORMAL INSPECTION - Neurological Exam Neurological Exam: Alert, Oriented x3 - Psychiatric Exam Psychiatric exam: Normal Affect, Normal Mood - Skin Skin Exam: Normal Color Assessment and Plan - Assessment and Plan (Free Text) Assessment: Hypoxia. S/P Lung biopsy. S/P thoracostomy. Right breast cancer. History colon cancer. HTN. CAD,S/P angioplasty. ASHD. Plan: CXR stat . Nebulizer treatment with Xopenex 1.25 mg.
--- NOTE | 2016-07-31 04:52 | HP ---
HISTORY OF PRESENT ILLNESS: This 86-year-old female was admitted to [facility] after sustaining a left pneumothorax, and developing chest pain and shortness of breath after a CT-guided biopsy of a lung mass. The patient was under the direct care of Dr. Tripp Mendes from interventional radiology, who immediately placed a left chest tube with good results, and the patient was admitted for further evaluation of the above. The patient's past medical history is extensive and includes history of old right breast cancer with mastectomy and breast reconstruction, history of colon cancer and colectomy, and now with outpatient CT-guided lung biopsy of a pulmonary mass under the direction of her oncologist, Dr. Rios. The patient has also comorbidities of chronic obstructive pulmonary disease, stable atherosclerotic heart disease, hyperlipidemia, chronic hypertension, degenerative arthritis, and anxiety neurosis with insomnia. The patient at present is sitting in her bed without chest pain or shortness of breath, and is tolerating her left chest tube with no issues. Earlier today, she had an episode of vomiting some undigested food, and I have ordered a flat plate and upright films of her abdomen to rule out ileus. The patient at present has no fever, no chills. No complaints of chest pain, shortness of breath, or abdominal pain, states she had a bowel movement yesterday and also is actively passing flatus. REVIEW OF SYSTEMS: HEAD: No headache or seizure. EYES: No change in visual acuity. EARS: No hearing loss. THROAT: No swallowing difficulty. NECK: No stiffness. CARDIOVASCULAR: She has stable atherosclerotic heart disease, chronic hypertension. PULMONARY: Status post CT-guided lung biopsy for a recently-noted lung mass by her oncologist. GASTROINTESTINAL: Has a history of colon cancer. GENITOURINARY: No dysuria. SKIN: Without rash. NEUROLOGIC: No stroke. VASCULAR: She has a history of chronic stable peripheral vascular disease. ENDOCRINE: No diabetes. HEMATOLOGICAL: No anemia. PSYCHOLOGICAL: Chronic anxiety, chronic insomnia. ALLERGIES: SHE HAS ALLERGY TO PENICILLIN AND GENERIC AMBIEN, AND HAD AN EPISODE OF QUESTIONABLE STEROID PSYCHOSIS AFTER IV SOLU-MEDROL IN HER PAST. SOCIAL HISTORY: She is a former smoker, a nondrinker, a non-IV drug misuser. She is a retired homemaker. PHYSICAL EXAMINATION: VITAL SIGNS: staff physician showing normal sinus rhythm. Her temperature is 97.4, respirations 20, pulse 66, and blood pressure 157/62, with a pulse ox of 94% on room air. HEENT: Normocephalic, atraumatic. Eyes: No icterus. Ears clear. Throat not injected. NECK: Supple. HEART: Regular S1, S2. No pathological rubs, murmurs, or gallops. PULMONARY: Clear to auscultation. ABDOMEN: Soft. There are audible bowel sounds in all 4 quadrants. There is no rebound. There is no guarding. There is no tenderness. There is no organomegaly. No CVA tenderness. EXTREMITIES: No clubbing, no cyanosis, no edema. SKIN: Without rash. NEUROLOGICAL: Intact. PSYCHOLOGICAL: Alert and anxious. VASCULAR: Legs warm to touch. LABORATORY DATA: White count 8400, hemoglobin 13.9, hematocrit 41.5, platelets 212,000. PT/INR 1.02, PTT 27.4. Sodium 141, K 4.9, chloride 104, bicarb 30, BUN 20, creatinine 0.6, random blood sugar is 95. Chest x-ray post-lung biopsy showed a small left apical pneumothorax. IMPRESSION: An 86-year-old female who sustained a left apical pneumothorax, status post CT lung biopsy with the intervention of left chest tube by Dr. Tripp Mendes, with comorbidities of chronic obstructive pulmonary disease, hyperlipidemia, chronic hypertension, stable atherosclerotic heart disease, chronic insomnia, chronic anxiety neurosis, now with an episode of vomiting, rule out ileus. PLAN: At present is to maintain chest tube as outlined. She has been downgraded to a clear liquid diet. I have instructed her nurse to make her n.p.o. if x-ray should show any evidence of ileus. She will continue on Xopenex inhalational therapy q. 8 hours. She has an order for Brovana and Pulmicort inhalational therapy q. 12 hours. She is receiving Protonix 40 mg IV daily, Norvasc 10 mg p.o. daily, metoprolol tartrate 50 mg p.o. b.i.d., Lipitor 20 mg p.o. at bedtime, and Ecotrin 325 mg p.o. daily. She will continue on D5 0.45 saline at 60 mL per hour. Percocet been discontinued. She is ordered to have Tylenol p.r.n. pain or fever. She has an order for a chest x-ray on Monday , 07/31, at which time Dr. Tripp Mendes will assess if she is safe for chest tube removal. I will order a repeat basic metabolic panel for the a.m., and all of the above has been reviewed in detail with the patient, her nurse, Emely Zaomra, registered nurse. Greater than 60 minutes was spent in the care, coordination of care, and review of care for this patient today. Overall prognosis remains poor. Arcelia Wu MD cc: [phone] TT: 07/31/2016 04:51:10 vn MTDD
[2016-07-31] MEDS: Dextrose 5%/0.45% NS 1,000 ML IV SCH (05:14)
[2016-07-31] MEDS: guaiFENesin 100 mg/5 ml Syrup UD PO PRN (05:24)
[2016-07-31 06:40] LABS: ARTERIAL BLOOD GAS HCO3 27.3 mmol/L (21-28); ARTERIAL BLOOD GAS O2 CAPACITY 16.4 mL/dl (16-24); ARTERIAL BLOOD GAS O2 CONTENT 15.8 ML/dl (15-23); ARTERIAL BLOOD HGB O2 SAT 93.4 % (95.0-98.0); CARBOXYHEMOGLOBIN 1.8 % (0.5-1.5); HHB 3.5 % (0-5); METHEMOGLOBIN 1.2 % (0.0-3.0)
[2016-07-31 07:05] LABS: BLOOD UREA NITROGEN 15 mg/dL (7-21); CALCIUM 8.7 mg/dL (8.4-10.5); CARBON DIOXIDE 27 mmol/L (21-33); CHLORIDE 101 mmol/L (98-107); GFR AFRICAN-AMERICAN > 60; GLUCOSE,RANDOM 163 mg/dL (70-110); POTASSIUM 3.5 mmol/L (3.6-5.0); SODIUM 136 mmol/L (132-148)
[2016-07-31 07:56] LABS: TROPONIN I < 0.01 ng/mL
--- NOTE | 2016-07-31 08:00 | RAD ---
HISTORY: R/O obstruction COMPARISON: No prior. FINDINGS: BOWEL: Normal. No obstruction. No free air. BONES: Normal. OTHER FINDINGS: Left lower lobe infiltrate. Pelvis not imaged on this view. IMPRESSION: Left lower lobe infiltrate.
[2016-07-31] MEDS: Arformoterol 15 mcg/2 ml Inh Sol IH SCH ×2 (08:06→19:50)
[2016-07-31] MEDS: Budesonide 0.25 mg/2 ml Inhal Susp UD IH SCH ×2 (08:13→19:50)
[2016-07-31] MEDS: Levalbuterol 0.63 MG/3 ML Inhal Soln UD IH SCH ×3 (08:13→19:50)
--- NOTE | 2016-07-31 08:20 | RAD ---
HISTORY: lt chest tube COMPARISON: No prior. FINDINGS: LUNGS: Chronic interstitial changes. PLEURA: Left chest tube in place. CARDIOVASCULAR: Normal. OSSEOUS STRUCTURES: No significant abnormalities. VISUALIZED UPPER ABDOMEN: Normal. OTHER FINDINGS: None. IMPRESSION: Chronic interstitial changes with left chest tube in place.
--- NOTE | 2016-07-31 08:20 | RAD ---
PROCEDURE: CHEST RADIOGRAPH, 1 VIEW HISTORY: hypoxia COMPARISON: None available. FINDINGS: LUNGS: Chronic interstitial changes. PLEURA: No pneumothorax or pleural fluid seen. CARDIOVASCULAR: Normal. Atherosclerotic aorta. OSSEOUS STRUCTURES: No significant abnormalities. VISUALIZED UPPER ABDOMEN: Normal. OTHER FINDINGS: None. IMPRESSION: No active disease.
[2016-07-31] MEDS: Aspirin 325 mg EC Tablets PO SCH (09:17)
[2016-07-31] MEDS: MethylPREDNISolone 40 mg Vial IV SCH ×3 (09:57→22:20)
[2016-07-31] MEDS ORDERED: Potassium Chloride 20 mEq ER Tab PO ONE (10:20)
--- NOTE | 2016-07-31 11:40 | CON ---
DATE: 07/31/2016 PULMONARY CONSULTATION REASON FOR CONSULTATION: Oxygen desaturation. REFERRING PHYSICIAN: Arcelia Wu MD. History is obtained via extensive discussion with Dr. Salas. I have also reviewed the chart at length, and discussed the case with the patient and nurse at length. The patient is an 86-year-old female with past medical history significant for chronic obstructive pulmonary disease, positive former smoker, left upper lobe pulmonary nodule (seen on CAT scan 04/26/16), breast cancer, status post mastectomy, colon cancer, status post colectomy, who was admitted - originally on 07/29/16 - for an outpatient lung biopsy (of the left upper lobe nodule). Apparently, after the biopsy, the patient experienced shortness of breath and chest pain. A small left apical pneumothorax was noted - and Dr. Mendes then placed a chest tube. The symptoms seemed to resolve after the chest tube insertion. The patient was thus admitted for additional evaluation and treatment. Again,I also spoke with the nurse at length. Apparently, this morning, oxygen desaturation was noted - on pulse oximetry. The patient was also noted to be mildly short of breath at rest. Upon additional questioning, the patient also has been coughing with minimal sputum production for 1 month. At the present time, the patient denies chest pain, coughing up of blood or chest pain - made worse with deep respirations. There is no history of temperatures, chills, or infectious exposure. There is no history of night sweats, weight loss, or appetite change prior to the above events. No history of leg or calf pains. No history of syncope or diaphoresis. No history of recent travel or trauma. REVIEW OF SYSTEMS: No history of nausea, vomiting, or diarrhea. No acute urinary symptoms. No new neurological or musculoskeletal complaints. The rest of the review of systems is negative. ALLERGIES: PENICILLIN. SOCIAL HISTORY: Positive for tobacco, negative for alcohol. FAMILY HISTORY: No inheritable diseases. HOME MEDICATIONS: Include Norvasc, Ambien, Robitussin, Lopressor, Lipitor, aspirin. PHYSICAL EXAMINATION: SUBJECTIVE: GENERAL: The patient is mildly short of breath at the present time. She is certainly in no acute distress. She denies chest pain. VITAL SIGNS: Temperature is 98.2, pulse 85, respirations 20/22, blood pressure 157/65. Oxygen saturation on a nonrebreather is 94%. HEENT: Normocephalic, atraumatic. NECK: No JVD. CARDIOVASCULAR: Systolic ejection murmur at the lower left sternal border. No S3 gallop. LUNGS: Decreased breath sounds at the bases. Scattered bilateral rhonchi. No wheezing. EXTREMITIES: No clubbing, cyanosis, or edema. Calves are nontender to palpation. GASTROINTESTINAL: Abdomen is soft, nontender, nondistended. Bowel sounds are positive. SKIN: No acute rash. Left chest tube in place. NEUROLOGIC: Limited at the present time. PERTINENT LABORATORY DATA: Chest x-ray was done this morning and reviewed. It appears that the left pneumothorax has resolved. Arterial blood gas was done on 100% oxygen. Results are: pH 7.40, pCO2 of 44, pO2 of 69. CBC on admission : White count 8.4, hemoglobin 13.9, hematocrit 41.5, platelets of 212. IMPRESSION: 1. Oxygen desaturation. 2. Status post left pneumothorax after lung biopsy - resolved. 3. Left upper lobe pulmonary nodule. 4. Chronic obstructive pulmonary disease. 5. Mild bronchospasm. PLAN: Again, I did discuss the case with Dr. Salas and the nurse at length. I have also talked to the patient at length, and reviewed the chart at length. Apparently, this morning, the patient experienced mild shortness of breath with oxygen desaturation. I did review the chest x-ray as above. There is no appreciable left pneumothorax noted. I have also reviewed the arterial blood gas. A significant rise in the alveolar arterial gradient is noted. Repeat labs - including D-dimer - are ordered, and will be followed closely. If clinically indicated and above lab values are concerning, we may need to rule out acute pulmonary embolism in this instance. On physical exam, there is mild bronchospasm noted. The patient has been started on Xopenex nebulizer treatments and moderate-dose intravenous steroids. The patient has also been made a DNR/DNI status. ICU consult has also been ordered - for possible transfer to the medical ICU. I have also requested(to the nurse) to be updated on the above data - when it is ready. I will discuss the above with Dr. Wu. Overall status/prognosis of this elderly woman - does remain guarded. Thank you very much for this pulmonary consultation. Haroon Parry MD cc: [id number] TT: 07/31/2016 11:39:04 Confirmation # [id number] Dictation # [id number] jn MTDD
--- NOTE | 2016-07-31 11:48 | RAD ---
PROCEDURE: HISTORY: lt chest tube COMPARISON: TECHNIQUE: FINDINGS: Bibasilar infiltrates and effusions, left greater than right. Atherosclerotic aorta. Heart and hilar silhouettes are within normal limits. Left chest tube in place. No evidence of pneumothorax. IMPRESSION: As above.
[2016-07-31] MEDS ORDERED: Iodixanol 320 MG/ML 100 ML BOTTLE IV ONE (13:28)
--- NOTE | 2016-07-31 15:15 | CT ---
PROCEDURE: CT Chest with contrast (Pulmonary Angiogram) HISTORY: rule out PE COMPARISON: None available. 04/26/2016 TECHNIQUE: Axial computed tomography images were obtained of the chest in the pulmonary arterial phase of enhancement. Coronal and sagittal reformatted images were created and reviewed. Intravenous contrast dose: 100 cc of Omnipaque 300 Radiation dose: Total exam DLP = 197 mGy-cm. This CT exam was performed using one or more of the following dose reduction techniques: Automated exposure control, adjustment of the mA and/or kV according to patient size, and/or use of iterative reconstruction technique. FINDINGS: PULMONARY ARTERIES: Unremarkable. No pulmonary embolism. AORTA: No acute findings. No thoracic aortic aneurysm. LUNGS: Consolidation at the left base. New 1 centimeters stellate nodule in the left upper lobe. Stable subpleural infiltrated changes in the lateral aspect of the left upper lobe adjacent to a left chest tube placement. Similar-appearing subpleural interstitial changes in the lateral segment of the right lower lobe. PLEURAL SPACES: Moderate left pleural effusion. Small right pleural effusion. HEART: Unremarkable. No cardiomegaly. No significant pericardial effusion. LYMPH NODES: No lymphadenopathy. BONES, CHEST WALL: Unremarkable. No fracture or destructive lesion OTHER FINDINGS: Right breast implant.. IMPRESSION: Bilateral pleural effusions, left greater than right with consolidation at the left base. New 1 centimeter nodule in the right upper lobe question neoplastic. Stable subpleural changes in the left upper lobe and right lower lobe. Left chest tube in place. No pulmonary embolus.
--- NOTE | 2016-07-31 15:18 | US ---
HISTORY: Leg pain and swelling. Evaluate for DVT PHYSICIAN(S): Tripp Mendes MD. TECHNIQUE: Duplex sonography and color-flow Doppler with graded compression were used to evaluate the deep venous systems of both lower extremities. FINDINGS: The visualized deep venous systems of both lower extremities are sonographically normal and compressible. Normal wave forms and augmentation are seen. There is no sonographic evidence for deep venous thrombosis in the visualized segments of both lower extremities. IMPRESSION: No sonographic evidence for deep venous thrombosis in the visualized segments of both lower extremities.
[2016-07-31 16:07] VITALS: RESP 20; TEMP 98; O2SAT 93
[2016-07-31] MEDS: Insulin Reg-LOW-Coverage SC SCH (17:39)
--- NOTE | 2016-07-31 18:51 | CARD ---
APPROVED REPORT EKG Measurement Heart [id number] <Conclusion> Sinus rhythm with frequent premature ventricular complexes Left axis deviation Left bundle branch block Abnormal ECG
--- NOTE | 2016-07-31 23:03 | PN ---
DATE: 07/31/2016 HISTORY OF PRESENT ILLNESS: This 86-year-old female was examined at her bedside. Her case was reviewed in detail with Dr. Salas, the medical house doctor, Dr. Haroon Parry from pulmonary, Dr. Tripp Mendes from interventional radiology, and her nurse, Fe Dan RN, in detail. The patient earlier this morning complained of not feeling well. She was seen by the house doctor. She was mildly short of breath and hypoxemic. Her O2 was adjusted. She was given nebulizer treatment, a dose of IV Solu-Medrol, and felt much better. The patient denied any fever or chills. She denied any chest pain. There was no report of hemoptysis or discolored sputum. No fever, no chills. The patient has a left chest tube in position with followup chest x-ray showing no evidence of persistent pneumothorax. The patient was felt to have mild bronchospasm by Dr. Parry, who concurred with the use of her Xopenex nebulizer treatments and IV steroids at present. The patient remains a DNR/DNI. She was evaluated by Dr. Monson from intensive care, who felt that the patient was stable to remain on the medical polk at this time. Her current problems had included earlier oxygen desaturation, status post left pneumothorax after lung biopsy, now resolved in the setting of a left upper lobe pulmonary nodule with chronic obstructive pulmonary disease and mild bronchospasm. PHYSICAL EXAMINATION: VITAL SIGNS: When I examined the patient her temperature was 98, respirations 20, pulse 80, blood pressure 146/54, with a pulse ox of 94% on room air. HEAD: Normocephalic, atraumatic. EYES: No icterus. EARS: Clear. THROAT: Noninjected. NECK: Supple. HEART: Regular S1, S2. No pathological rubs, murmurs, or gallops. LUNGS: Had rhonchi and occasional expiratory wheezing that cleared with coughing. ABDOMEN: Soft. No palpable organomegaly, no rebound, no guarding, no tenderness. EXTREMITIES: No clubbing, no cyanosis, no edema. SKIN: Without rash. NEUROLOGIC: Intact. PSYCHOLOGICAL: Alert and oriented x 3. VASCULAR: Her legs are warm to touch. LABORATORY DATA: White count 8400; hemoglobin 13.9; hematocrit 41.5; platelets 212,000. D-dimer was elevated at 18.5. Chemistry showed sodium 136, potassium 3.5, chloride 101, bicarb 27, BUN 15, creatinine 0.6, random blood sugar was 163. Troponin was less than 0.01. RADIOLOGY: Abdominal x-ray yesterday showed no evidence of obstruction and venous Dopplers of both lower extremities showed no evidence of deep venous thrombosis. Chest x-ray was consistent with chronic interstitial infiltrates, pleural effusion, and no evidence of pneumothorax. Case was reviewed with Dr. Tripp Mendes, who felt that the patient's x-ray findings were all stable and actually improved, and he plans to remove chest tube in a.m. if patient is stable. IMPRESSION: An 86-year-old female, status post left lung biopsy for probable lung neoplasm, rule out primary lung carcinoma versus metastatic disease to her lung, with multiple medical problems, including chronic obstructive pulmonary disease, chronic hypertension, stable atherosclerotic heart disease, hyperlipidemia, and history of colon cancer, breast cancer. PLAN: At present is to continue 2 L nasal O2 p.r.n. She will continue on Zithromax 500 mg IV daily, Xopenex inhalational therapy q. 6 hours. She is receiving Solu-Medrol 40 mg IV q. 8, which will be dose reduced to 40 mg IV q. 12, and after discussion with pulmonary, hopefully switch to a Medrol Dosepak taper. She continues on Pulmicort inhalational therapy, Brovana inhalational therapy, Protonix 40 mg IV daily, metoprolol tartrate 50 mg p.o. b.i.d., Lipitor 20 mg p.o. at bedtime. She received 1 dose of Lasix 20 mg IV with potassium 20 mEq p.o. 1 dose. She is on heparin 5000 units subcutaneous q. 12. She is awaiting her surgical pathology biopsy result. A basic metabolic panel has been ordered for the a.m. and will await the results of her blood culture. She remains a DNR/DNI. Once she is cleared by pulmonary and her chest tube is removed, we will ready her for either transitional care rehab or discharge to home with 24-hour supervision. Her overall prognosis remains poor, and supportive and compassionate care will be afforded to this patient. Greater than 60 minutes was spent in the care, coordination of care, review of care, and discussion of care with the patient, nursing staff, and co- consultants today. Arcelia Wu MD cc: [id number] TT: 07/31/2016 23:03:27 Confirmation # [id number] Dictation # [id number] dn MTDD
[2016-08-01] MEDS: Insulin Reg-LOW-Coverage SC SCH ×2 (05:34→08:20)
--- NOTE | 2016-08-01 07:29 | CON ---
DATE: 07/31/2016 This is an 86-year-old lady with history of breast cancer who was admitted yesterday for lung biopsy by Dr. Tripp Mendes. She had a small apical pneumothorax after the procedure, and chest tube was placed with good results. The patient had an episode of hypoxemia requiring increase in FiO2 today, and ICU consult was placed. At present time, the patient is on partial nonrebreather, and her oxygen saturation varies between 99 and 100%. PAST MEDICAL HISTORY: Right breast cancer with mastectomy and breast reconstruction, history of colon cancer and colectomy, COPD, coronary artery disease, hyperlipidemia, hypertension. REVIEW OF SYSTEMS: No fever, no chills, no sweats, no nausea, no vomiting, no diarrhea, no constipation. Review of the rest of 12-organ system is negative. SOCIAL HISTORY: No alcohol or illicit drug abuse. ALLERGIES: PENICILLIN, ZOLPIDEM, ?IV SOLU-MEDROL. MEDICATIONS: Tylenol p.r.n., Norvasc, Brovana, aspirin, Lipitor, Pulmicort, D5 half normal saline 60 mL per hour, Robitussin, heparin subQ, Xopenex, Solu- Medrol 40 mg IV q. 6, metoprolol, Zofran p.r.n., Protonix. PHYSICAL EXAMINATION: VITAL SIGNS: Blood pressure 146/54, temperature 99.3, heart rate 80, oxygen saturation 100% on partial nonrebreather, respiratory rate 21. HEAD AND NECK: Atraumatic. LUNGS: Decreased breath sounds on the left side (where biopsy was done). HEART: Regular rate and rhythm. S1, S2 normal. ABDOMEN: Soft, nontender, nondistended. MUSCULOSKELETAL: No C/C/E. NEUROLOGIC: The patient moves all extremities spontaneously. SKIN: Moist. PSYCHIATRIC: The patient is alert and oriented x 3. LABORATORY DATA: Sodium 136, potassium 3.5, chloride 101, carbon dioxide 27, BUN 15, creatinine 0.6, glucose 163. WBC 8.4, hemoglobin 13.9, platelet count 212. ASSESSMENT AND PLAN: This is an 86-year-old lady who had small apical pneumothorax, status post pigtail catheter placement. Today's chest x-ray did not reveal any pneumothorax, and the patient is not in acute respiratory distress. I put the patient on deep venous thrombosis prophylaxis with heparin subQ. I ordered venous Doppler. Her D-dimer elevation most likely relates to the history of malignancy, however, the same thing can make her hypercoagulable. If venous Doppler comes back negative, I will proceed with CAT scan with PE protocol to rule out pulmonary embolism. At present time, the patient is hemodynamically stable. She is to remain on partial nonrebreather until repeated CXR ruled out persistent pneumothorax. We will continue with serial chest x-ray. If chest x-ray today remains stable, we will start tapering down her FiO2 later on. ccm time 40 min Michael Monson MD cc: [id number] TT: 07/31/2016 10:18:55 Confirmation # [id number] Dictation # [id number] jn MTDD
[2016-08-01] MEDS ORDERED: Pantoprazole 20 mg EC Tab PO SCH (07:30)
[2016-08-01 07:31] VITALS: BP 135/64; PULSE 60
[2016-08-01 07:34] LABS: HEMATOCRIT 35.1 % (36.0-48.0)
[2016-08-01 07:42] LABS: BLOOD UREA NITROGEN 24 mg/dL (7-21); CALCIUM 9.2 mg/dL (8.4-10.5); CARBON DIOXIDE 30 mmol/L (21-33); CHLORIDE 103 mmol/L (95-110); GFR AFRICAN-AMERICAN > 60; GLUCOSE,RANDOM 147 mg/dL (70-110); POTASSIUM 4.1 mmol/L (3.6-5.0); SODIUM 139 mmol/L (132-148)
[2016-08-01] MEDS: Arformoterol 15 mcg/2 ml Inh Sol IH SCH (07:58)
[2016-08-01] MEDS: Levalbuterol 0.63 MG/3 ML Inhal Soln UD IH SCH (07:59)
--- NOTE | 2016-08-01 09:14 | PN ---
DATE: 08/01/2016 PULMONARY NOTE SUBJECTIVE: The patient appears very comfortable this morning. She is not short of breath at rest. PHYSICAL EXAMINATION: VITAL SIGNS: Temperature is 98.0, pulse 66, respirations 18, blood pressure 127 /51. Oxygen saturation on room air is 93-94%. HEENT: Normocephalic, atraumatic. No JVD. CARDIOVASCULAR: Systolic ejection murmur at the lower left sternal border. No S3 gallop. LUNGS: Improved breath sounds at the bases. Much less rhonchi. No wheezing. EXTREMITIES: No clubbing, cyanosis, or edema. Calves are nontender to palpation. GASTROINTESTINAL: Abdomen is soft, nontender, nondistended. Bowel sounds are positive. SKIN: No acute rash. Left chest tube has been removed. NEUROLOGIC: Limited at the present time. PERTINENT LABORATORY DATA: Extremity ultrasound was done yesterday and reviewed. There is no evidence for deep venous thrombosis. CAT scan of the chest was also done as an angiogram protocol. There is no pulmonary embolism noted. There is a left upper lobe pulmonary nodule - unchanged from the previous exam. There are also stable changes in the periphery of the left upper lobe. There is also a small right sided pulmonary nodule - also seen on the CAT scan of 06/04/12. Lastly, there are some very small bilateral pleural effusions noted. IMPRESSION: 1. Oxygen desaturation - resolving. 2. Status post left pneumothorax after lung biopsy - resolved. 3. Bilateral pulmonary nodules. 4. Chronic obstructive pulmonary disease. 5. Mild bronchospasm - resolving. PLAN: The patient appears very comfortable this morning. She is not short of breath at rest. She states she feels much better today. I did discuss the status of the patient multiple times with the nurse yesterday, and again today. It appears that her shortness of breath has now resolved. In addition, it appears that the alveolar arterial gradient is also resolving. I did review the CAT scan of the chest as above. There is no pneumothorax noted. There is no pulmonary embolism noted. We are awaiting the CAT scan-guided lung biopsy results. On physical exam, there is significantly less bronchospasm noted. I will continue with the current nebulizer treatments and low-dose intravenous steroids (changed today). Clinical status of the patient is significantly improved - compared to yesterday. I will discuss the above with the attending physician. Haroon Parry MD cc: [id number] TT: 08/01/2016 09:13:17 Confirmation # [id number] Dictation # [id number] jn MTDD
[2016-08-01] MEDS: Aspirin 325 mg EC Tablets PO SCH (09:53)
[2016-08-01] MEDS ORDERED: MethylPREDNISolone 40 mg Vial IV SCH (10:00)
[2016-08-01] MEDS ORDERED: Azithromycin 500 MG in Sodium Chloride 0.9% 250 ML IVPB SCH (10:00)
--- NOTE | 2016-08-01 18:33 | DS ---
FINAL DIAGNOSES: Status post left lung CT-guided biopsy for probable lung neoplasm complicated by left pneumothorax requiring chest tube placement by Dr. Tripp Mendes from interventional radiology, with exacerbation of chronic obstructive pulmonary disease now resolved and chronic hypertension, history of breast and colon cancer, chronic insomnia, anxiety neurosis, chronic hypertension and hyperlipidemia. DISPOSITION: Home with family and 24-hour supervision. Follow up with Dr. Tripp Mendes as per his instructions. Follow up with Dr. Yoan Smith from pulmonary. Followup with Dr. Rios, her oncologist, within 24 hours for biopsy results and further discussion of management of her lung mass. Follow up in my office within 1 week. DISCHARGE DIET: Heart healthy soft bland. DISCHARGE MEDICATIONS: Norvasc 10 mg p.o. daily, metoprolol tartrate 50 mg p.o. b.i.d., Lipitor 20 mg p.o. at bedtime, Ecotrin 325 mg p.o. daily, ProAir 2 puffs q. 6 hours p.r.n. shortness of breath and a Medrol Dosepak as directed. CONSULTANTS: On the case included Dr. Tripp Mendes from interventional radiology and Dr. Haroon Parry from pulmonary. SUMMARY: This 86-year-old female was admitted to [facility] after an outpatient CT-guided lung biopsy performed by Dr. Tripp Mendes was complicated by a left lung pneumothorax, which prompted him to place a left chest tube with good result. The patient experienced an exacerbation of chronic obstructive pulmonary disease with shortness of breath and wheezing and transient hypoxemia that was treated with nebulizers, IV Solu-Medrol and pulmonary toiletry. Nowhere during the hospital course did the patient have any elevated white count or fever and on the date of discharge, the patient was alert, oriented, ambulating independently with no fever, no chills, no productive sputum and a pulse ox of 93% on room air. PHYSICAL EXAMINATION AT THE TIME OF DISCHARGE: VITAL SIGNS: Her temperature was 98, respirations 20, pulse 60, blood pressure 135/64 and pulse ox 93% on room air. HEART: Regular S1, S2. LUNGS: Clear to auscultation. ABDOMEN: Soft, nontender, no palpable organomegaly. EXTREMITIES: Showed no clubbing, no cyanosis, no edema. Her initial white count was 8400 with a hemoglobin of 13.9, hematocrit 41.5 and platelets of 212,000. Her sodium was 139, K 4.1, chloride 103, bicarb 30, BUN 24, creatinine 0.6 and random blood sugar 147 with a troponin of less than 0.01. The patient had a CT angiogram for completeness sake on the afternoon of Monday, 07/31 which was reviewed with both Dr. Haroon Parry from pulmonary and Dr. Tripp Mendes from radiology, which showed no pneumothorax, no pulmonary embolism, no evidence of pneumonia and small pleural effusions felt to be secondary to recent pneumothorax and lung biopsy. The case was discussed in detail with both Dr. Tripp Mendes and Dr. Haroon Parry who both cleared the patient for discharge to home. The patient was not felt to need any antibiotics in the absence of fever, chills or white count. She was instructed for any change in signs and symptoms to present directly to the [facility] ER and her overall prognosis remains poor given her above findings and multiple comorbidities. Arcelia Wu MD cc: [id number] TT: 08/01/2016 18:33:17 christophe ANSARI
== END 2016-08-01 13:26 | disposition home or self-care (01) | DRG 200 ==
LOC: SDS 12:24 → 3RNO 21:15
PROVIDERS: ADMIT Internal Medicine; ATTEND Internal Medicine
PROC: 0W9B30Z Drainage of Left Pleural Cavity with Drainage Device, Percutaneous Approach (ICD-10-PCS; principal; 2016-07-29 14:30)
DX: J95.811 Postprocedural pneumothorax (principal); J44.1 Chronic obstructive pulmonary disease with (acute) exacerbation; C34.12 Malignant neoplasm of upper lobe, left bronchus or lung; G62.9 Polyneuropathy, unspecified; I73.9 Peripheral vascular disease, unspecified; I10 Essential (primary) hypertension; I25.10 Atherosclerotic heart disease of native coronary artery without angina pectoris; G47.00 Insomnia, unspecified; M19.90 Unspecified osteoarthritis, unspecified site; R09.02 Hypoxemia; F41.1 Generalized anxiety disorder; E78.5 Hyperlipidemia, unspecified; J98.01 Acute bronchospasm; Z66 Do not resuscitate; Y84.8 Other medical procedures as the cause of abnormal reaction of the patient, or of later complication, without mention of misadventure at the time of the procedure; Z90.10 Acquired absence of unspecified breast and nipple; Z85.038 Personal history of other malignant neoplasm of large intestine; Z85.3 Personal history of malignant neoplasm of breast; Z87.891 Personal history of nicotine dependence; Z88.0 Allergy status to penicillin

== ENCOUNTER 2017-03-05 11:45 | Inpatient (IN) | payer MEDICARE, OTHER ==
[2017-03-05] MEDS ORDERED: Ipratropium 0.02% Inhal Soln (0.5 mg/2.5 ml) UD IH STA (11:59)
[2017-03-05 12:35] LABS: BASO # 0.02 K/mm3 (0.0-2.0); BASO % 0.2 % (0.0-3.0); EOS % 0.1 % (1.5-5.0); GRAN # 9.28 (1.4-6.5); GRAN % 84.5 % (50.0-68.0); LYMPH # 0.7 (1.2-3.4); LYMPH % 6.6 % (22.0-35.0); MEAN CELL VOLUME 91.9 fl (80.0-105.0); MEAN CORPUSCULAR HGB CONC 32.7 g/dl (31.0-37.0); MEAN PLATELET VOLUME 10.4 fl (7.0-11.0); MONO % 8.6 % (1.0-6.0); RBC 4.33 10^6/uL (3.5-6.1); RED CELL DISTRIBUTION WIDTH 13.6 % (11.5-14.5)
[2017-03-05] MEDS ORDERED: Tmp-Smz 800 mg-160 mg DS Tab PO STA (12:41)
--- NOTE | 2017-03-05 12:46 | ED PDOC ---
Arrival/HPI - General Chief Complaint: Shortness Of Breath Time Seen by Provider: 03/05/17 11:58 Historian: Patient - History of Present Illness Narrative History of Present Illness (Text): 03/05/17 12:36 87 year old female, ex cigarette smoker, whose past medical history includes hypertension, ASHD/CAD s/p PCI, hyperlipidemia, right sided breast cancer with right sided partial mastectomy, colon cancer s/p partial cholecystectomy, DVT and right carotid endarterectomy, presents to the Emergency department complaining of shortness of breath for past 5-6 days. Patient states worsening shortness of breath last night, which brought her to the Emergency department today. Patient informs associated productive cough with various colored mucus, mostly "yellow" in color. Patient additionally informs increased "rowdiness" of her throat with gravelly voice. Patient denies any dyspnea upon exertion, fever , chills, nausea, vomiting, diarrhea, abdominal pain, chest pain, or any other complaints. Time/Duration: 24 hours Symptom Onset: Gradual Symptom Course: Unchanged Activities at Onset: Light Context: Home Past Medical History - Provider Review Nursing Documentation Reviewed: Yes - Infectious Disease Hx of Infectious Diseases: None - Reproductive Menopause: Yes - Cardiac Hx Cardiac Disorders: Yes Hx Hypertension: Yes - Pulmonary Hx Chronic Obstructive Pulmonary Disease (COPD): Yes Hx Lung Cancer: Yes - Neurological HX Cerebrovascular Accident: No - HEENT Hx HEENT Disorder: No (WEARS RX GLASSES) - Renal Hx Renal Failure: No - Endocrine/Metabolic Hx Endocrine Disorders: No - Hematological/Oncological Hx Blood Disorders: No - Integumentary Hx Dermatological Disorder: Yes Other/Comment: RIGHT MASTECTOMY - Musculoskeletal/Rheumatological Hx Arthritis: Yes Hx Rheumatoid Arthritis: No - Gastrointestinal Hx Gastroesophageal Reflux: No - Genitourinary/Gynecological Hx Genitourinary Disorders: No - Psychiatric Hx Emotional Abuse: No Hx Physical Abuse: No Hx Substance Use: No - Surgical History Other/Comment: Right mastectomy - Anesthesia Hx Anesthesia Reactions: No Hx Malignant Hyperthermia: No - Suicidal Assessment Feels Threatened In Home Enviroment: No Family/Social History - Physician Review Nursing Documentation Reviewed: Yes Family/Social History: No Known Family HX Smoking Status: Former Smoker Hx Alcohol Use: Yes (BEER AT TIMES) Hx Substance Use: No Allergies/Home Meds Allergies/Adverse Reactions: Allergies Penicillins Allergy (Severe, Verified 03/05/17 12:02) RASH zolpidem Allergy (Mild, Verified 03/05/17 12:02) CONFUSION CONFUSION,AGITATION-PT CAN TAKE BRAND NAME AMBIEN Home Medications: Home Meds Medication Instructions Recorded Confirmed amLODIPine [Norvasc] 5 mg PO DAILY 06/14/15 03/05/17 Metoprolol Tartrate [Lopressor] 50 mg PO BRKDIN 07/09/16 03/05/17 Atorvastatin [Lipitor] 20 mg PO QPM 03/05/17 03/05/17 Review of Systems - Physician Review All systems were reviewed & negative as marked: Yes - Review of Systems Constitutional: Normal. absent: Fevers Eyes: Normal ENT: Sore Throat Respiratory: SOB, Cough Cardiovascular: Normal. absent: Chest Pain Gastrointestinal: Normal. absent: Abdominal Pain, Diarrhea, Nausea, Vomiting Genitourinary Female: Normal Musculoskeletal: Normal Skin: Normal Neurological: Normal Endocrine: Normal Hemo/Lymphatic: Normal Psychiatric: Normal Physical Exam Vital Signs Reviewed: Yes Vital Signs Temp Pulse Resp BP Pulse Ox 03/05/17 13:51 89 20 148/56 L 95 03/05/17 12:59 87 18 137/53 L 99 03/05/17 12:22 20 99 03/05/17 11:54 98.3 F 99 H 18 136/73 97 Temperature: Afebrile Blood Pressure: Normal Pulse: Tachycardic Respiratory Rate: Normal Appearance: Positive for: Well-Appearing, Non-Toxic, Comfortable Pain Distress: None Mental Status: Positive for: Alert and Oriented X 3 - Systems Exam Head: Present: Atraumatic, Normocephalic Pupils: Present: PERRL Extroacular Muscles: Present: EOMI Conjunctiva: Present: Normal Mouth: Present: Moist Mucous Membranes Neck: Present: Normal Range of Motion Respiratory/Chest: Present: Good Air Exchange, Rhonchi (scattered rhonchi. ), Other (decreased IE ratio. ). No: Respiratory Distress, Accessory Muscle Use Cardiovascular: Present: Murmurs (Mild systolic ejection. ), Normal S1, S2 Abdomen: Present: Normal Bowel Sounds. No: Tenderness, Distention, Peritoneal Signs Back: Present: Normal Inspection Upper Extremity: Present: Normal Inspection. No: Cyanosis, Edema Lower Extremity: Present: Normal Inspection. No: Edema Neurological: Present: GCS=15, CN II-XII Intact, Speech Normal Skin: Present: Warm, Dry, Normal Color. No: Rashes Psychiatric: Present: Alert, Oriented x 3, Normal Insight, Normal Concentration Medical Decision Making ED Course and Treatment: 03/05/17 12:49 Impression: 87 year old female presents to the Emergency department for shortness of breath. Plan: -- VBG -- EKG -- Labs -- Chest X-ray -- Atrovent -- Blood culture/ urine culture -- Urinalysis -- Reassess and disposition Progress Notes: EKG:Ordered, reviewed, and independently interpreted the EKG. Rate : 112 BPM Rhythm : Sinus Tachycardia. Interpretation : Occasional PVC. Left BBB. ST elevation in V3. - Lab Interpretations Lab Results: 03/05/17 12:15 03/05/17 12:15 Lab Results 03/05/17 12:15: Sodium 139, Chloride 101, Potassium 3.7, Carbon Dioxide 27, Anion Gap 15, BUN 19, Creatinine 0.6 L, Est GFR ( Amer) > 60, Est GFR ( Non-Af Amer) > 60, Random Glucose 160 H, Calcium 9.2, Total Bilirubin 1.4 H, AST 21, ALT 27, Alkaline Phosphatase 104, Lactate Dehydrogenase 453, Total Creatine Kinase 50, Troponin I < 0.01, Total Protein 6.6, Albumin 3.8, Globulin 2.8, Albumin/Globulin Ratio 1.3 03/05/17 12:15: pO2 39, VBG pH 7.38, VBG pCO2 49.0, VBG HCO3 29.0 H, VBG Total CO2 30.5 H, VBG O2 Sat (Calc) 78.1 H, VBG Base Excess 3.0 H, VBG Potassium 3.7, Sodium 137.0, Chloride 103.0, Glucose 162 H, Lactate 1.5, FiO2 21.0, Venous Blood Potassium 3.7 03/05/17 12:15: PT 15.3 H, INR 1.32 H, APTT 31.6 03/05/17 12:15: WBC 11.0 D, RBC 4.33, Hgb 13.0, Hct 39.8, MCV 91.9, MCH 30.0, MCHC 32.7, RDW 13.6, Plt Count 191, MPV 10.4, Gran % 84.5 H, Lymph % (Auto) 6.6 L, [place] % (Auto) 8.6 H, Eos % (Auto) 0.1 L, Baso % (Auto) 0.2, Gran # 9.28 H, Lymph # 0.7 L, [place] # 1.0 H, Eos # 0.0, Baso # 0.02 - RAD Interpretation Radiology Orders: 03/05/17 12:00 CHEST PORTABLE [RAD] Stat 03/05/17 12:41 ANGIO CHEST PE PROTOCOL [CT] Stat - Medication Orders Current Medication Orders: Albuterol/Ipratropium (Duoneb 3 Mg/0.5 Mg (3 Ml) Ud) 3 ml IH Q4H PRN PRN Reason: Shortness of Breath Sodium Chloride (Sodium Chloride 0.9%) 1,000 mls @ 100 mls/hr IV .Q10H STA Stop: 03/06/17 01:16 Discontinued Medications Doxycycline Hyclate 100 mg/ (Sodium Chloride) 100 mls @ 100 mls/hr IVPB ONCE ONE PRN Reason: Protocol Stop: 03/05/17 13:39 Last Admin: 03/05/17 13:12 Dose: 100 mls/hr eMAR Start Stop Document 03/05/17 13:12 EWO (Rec: 03/05/17 13:13 [id number] Intravenous Solution Start Date 03/05/17 Start Time 13:13 End Date 03/05/17 End time 14:13 Total Infusion Time 60 Ipratropium [place] (Atrovent) 0.5 mg IH STAT STA Stop: 03/05/17 12:00 Last Admin: 03/05/17 12:35 Dose: 0.5 mg Methylprednisolone (Solu-Medrol) 125 mg IVP STAT STA Stop: 03/05/17 12:40 Last Admin: 03/05/17 12:50 Dose: 125 mg IVP Administration Document 03/05/17 12:50 EWO (Rec: 03/05/17 12:50 [id number] Charges for Administration # of IVP Administrations 1 Trimethoprim/Sulfamethoxazole (Bactrim Ds Tab) 1 tab PO STAT STA PRN Reason: Protocol Stop: 03/05/17 12:42 Last Admin: 03/05/17 12:50 Dose: 1 tab - Scribe Statement The provider has reviewed the documentation as recorded by the Scribe Gela Hernandez. All medical record entries made by the Korey were at my direction and personally dictated by me. I have reviewed the chart and agree that the record accurately reflects my personal performance of the history, physical exam, medical decision making, and the department course for this patient. I have also personally directed, reviewed, and agree with the discharge instructions and disposition. Disposition/Present on Arrival - Present on Arrival Any Indicators Present on Arrival: No History of DVT/PE: No History of Uncontrolled Diabetes: No Urinary Catheter: No History of Decub. Ulcer: No History Surgical Site Infection Following: None - Disposition Have Diagnosis and Disposition been Completed?: Yes Diagnosis: COPD exacerbation Disposition: HOSPITALIZED Disposition Time: 15:30 Patient Plan: Telemetry Condition: FAIR Forms: [employer] ([place]ayan)
[2017-03-05 12:47] LABS: INR 1.32 (0.93-1.08); PARTIAL THROMBOPLASTIN TIME 31.6 Seconds (25.1-36.5); PROTHROMBIN TIME 15.3 SECONDS (9.4-12.5)
[2017-03-05] MEDS ORDERED: Iodixanol 320 MG/ML 100 ML BOTTLE IV ONE (12:50)
[2017-03-05 12:55] LABS: VENOUS BLOOD GAS PO2 39 mm/Hg (30-55); VENOUS BLOOD PH 7.38 (7.32-7.43)
[2017-03-05 13:11] LABS: ALB/GLOB RATIO 1.3 (1.1-1.8); ALBUMIN 3.8 g/dL (3.0-4.8); ALT/SGPT 27 U/L (7-56); AST/SGOT 21 U/L (14-36); BLOOD UREA NITROGEN 19 mg/dL (7-21); CALCIUM 9.2 mg/dL (8.4-10.5); GFR AFRICAN-AMERICAN > 60; GFR NON-AFRICAN AMERICAN > 60
[2017-03-05 13:21] LABS: TROPONIN I < 0.01 ng/mL
--- NOTE | 2017-03-05 14:49 | CT ---
PROCEDURE: CT Chest with contrast (Pulmonary Angiogram) HISTORY: sob COMPARISON: 03/05/2017 TECHNIQUE: Axial computed tomography images were obtained of the chest in the pulmonary arterial phase of enhancement. Coronal and sagittal reformatted images were created and reviewed. Intravenous contrast dose: Radiation dose: Total exam DLP = mGy-cm. This CT exam was performed using one or more of the following dose reduction techniques: Automated exposure control, adjustment of the mA and/or kV according to patient size, and/or use of iterative reconstruction technique. FINDINGS: PULMONARY ARTERIES: Unremarkable. No pulmonary embolism. AORTA: No acute findings. No thoracic aortic aneurysm. LUNGS: Stable bilateral pleural based masses measuring up to 1.9 centimeters in the right upper lobe and 1.4 centimeters in the right lower lobe. Stable intraparenchymal irregular nodule measuring 7 millimeters in the left upper lobe. Re-demonstration of scattered bilateral interstitial changes. Mild centrilobular emphysema. PLEURAL SPACES: Unremarkable. No effusion or pneuomothorax. HEART: Unremarkable. No cardiomegaly. No significant pericardial effusion. LYMPH NODES: No lymphadenopathy. BONES, CHEST WALL: Unremarkable. No fracture or destructive lesion OTHER FINDINGS: Unremarkable. IMPRESSION: Stable bilateral pleural based masses measuring up to 1.9 centimeters in the right upper lobe and 1.4 centimeters in the right lower lobe. Stable intraparenchymal irregular nodule measuring 7 millimeters in the left upper lobe. Re-demonstration of scattered bilateral interstitial changes. Mild centrilobular emphysema. No pulmonary embolus.
--- NOTE | 2017-03-05 14:52 | RAD ---
HISTORY: sob COMPARISON: No prior. FINDINGS: LUNGS: No active pulmonary disease. PLEURA: No significant pleural effusion identified, no pneumothorax apparent. CARDIOVASCULAR: Normal. Atherosclerotic aorta. OSSEOUS STRUCTURES: No significant abnormalities. VISUALIZED UPPER ABDOMEN: Normal. OTHER FINDINGS: None. IMPRESSION: No active disease.
[2017-03-05] MEDS ORDERED: Albuterol-Ipratrop 3 mg / 0.5 (3 ml) UD IH PRN (15:17)
[2017-03-05] MEDS ORDERED: Sodium Chloride 0.9% 1,000 ML IV STA (15:17)
[2017-03-05] MEDS ORDERED: DiphenhydrAMINE 50 mg/ml Inj IVP PRN (19:29)
[2017-03-05] MEDS ORDERED: Levalbuterol 0.63 MG/3 ML Inhal Soln UD IH PRN (19:48)
[2017-03-05] MEDS: Sodium Chloride 0.45% 1,000 ML IV SCH (21:04)
[2017-03-05 22:10] LABS: URINE BILIRUBIN NEGATIVE (NEGATIVE); URINE BLOOD NEGATIVE (NEGATIVE); URINE GLUCOSE (UA) 250 mg/dL (NEGATIVE); URINE LEUKOCYTE ESTERASE NEGATIVE Leu/uL (NEGATIVE); URINE NITRATE NEGATIVE (NEGATIVE); URINE PROTEIN 100 mg/dL (<30 mg/dL)
[2017-03-05 22:11] LABS: URINE APPEARANCE CLEAR (CLEAR); URINE COLOR YELLOW (YELLOW)
[2017-03-05 22:49] LABS: URINE BACTERIA MOD (NEG); URINE EPITHELIAL CELLS 0 - 2 /hpf (0-5); URINE RBC 0 - 2 /hpf (0-2); URINE WBC 0 - 2 /hpf (0-6)
[2017-03-05] MEDS: Insulin Reg-LOW-Coverage SC SCH (22:55)
[2017-03-05] MEDS: guaiFENesin DM 100 mg-10 mg/5 ml UD PO SCH (23:00)
[2017-03-06] MEDS: guaiFENesin DM 100 mg-10 mg/5 ml UD PO SCH ×4 (05:16→23:03)
--- NOTE | 2017-03-06 06:01 | HP ---
HISTORY OF PRESENT ILLNESS: This 87-year-old female was examined at her bedside. She presented to [facility] earlier today. She complained of feeling weak, deconditioned, dehydrated and with a productive cough of yellow sputum. She stated her symptoms began 48 hours ago. She noticed the onset of worsening cough and congestion. She then became unable to eat or tolerate food and became markedly weak and decided to present to the Emergency Room for further evaluation of the above. PAST MEDICAL HISTORY: Extensive and includes history of breast cancer, mastectomy, lung cancer, chronic hypertension, chronic obstructive pulmonary disease, hyperlipidemia, anxiety neurosis and chronic insomnia. REVIEW OF SYSTEMS: CONSTITUTIONAL: Patient admitted to chills, but did not record her fever. HEENT: On eye review, no change in visual acuity. Ear review, no hearing loss. Throat review, no swallowing difficulty. NECK: No stiffness. CARDIAC: She has a history of atherosclerotic heart disease that is stable with a history of coronary artery stenting in the past. PULMONARY: As per HPI. GASTROINTESTINAL: Has a history of colon cancer and resection in the past. GENITOURINARY: No dysuria. SKIN: No rash. VASCULAR: Stable claudication. ENDOCRINE: She has hyperlipidemia. NEUROLOGIC: No knowledge of stroke. HEMATOLOGICAL: Denies anemia. FAMILY HISTORY: Noncontributory. SOCIAL HISTORY: She is at current nonsmoker, social drinker, non IV drug misuser. She is a retired homemaker. ALLERGIES: SHE HAS A HISTORY OF AN UNKNOWN REACTION TO PENICILLIN AND ZOLPIDEM, GENERIC, BUT NOT NAME BRAND AMBIEN. PHYSICAL EXAMINATION: GENERAL: She is in normal sinus rhythm on the awake overnight monitor. VITAL SIGNS: Temperature 98.6, respirations 18, pulse 74, blood pressure 137/58. Pulse ox 95% room air. HEENT: Head: Normocephalic, atraumatic. Eyes: No icterus. Ears: Clear. Throat: Noninjected. NECK: Supple. HEART: Regular S1, S2. No pathological rubs, murmurs or gallops. LUNGS: Have rhonchi at the base of both lungs bilaterally with occasional wheezing, no rales. ABDOMEN: Soft. EXTREMITIES: No clubbing, no cyanosis, no edema. SKIN: Poor turgor. VASCULAR: Legs warm to touch. PSYCHOLOGICAL: Alert and anxious. NEUROLOGIC: Grossly intact, but deconditioned. LABORATORY DATA: White count 11,000, hemoglobin 13, hematocrit 39.8, platelet 191,000. PT/INR 1.32, PTT 31.6. Sodium 139, K 3.7, chloride 101, bicarb 27, BUN 19, creatinine 0.6, random blood sugar 160. Bilirubin 1.4, AST 21, ALT 27, alk phos 104. Chest x-ray was reviewed. It showed no active pulmonary disease, no significant pleural effusions, no pneumothorax. Chest CT was reviewed. This was ordered by emergency room physician to ensure there was no evidence of pulmonary emboli. On review, it showed stable bilateral pleural base masses, 1.9 cm in the right upper lobe and 1.4 cm in the right lower lobe, also with a stable intraparenchymal nodule, which measures 7 mm in her left upper lobe as well as scattered bilateral interstitial changes and mild centrilobular emphysema, all of which are chronic. It should be noted that these CAT scans are being monitored on a serial basis by her oncologist, Dr. Fernando Fuller and Dr. Rios as an outpatient. To date, she has not received any further chemotherapy or intervention for these stable findings. No pulmonary embolism was noted on this chest CT of today. EKG reportedly showed normal sinus rhythm with nonspecific ST-T wave changes. IMPRESSION: An 87-year-old female with an exacerbation of chronic obstructive pulmonary disease and probable bronchial pneumonia with comorbidities of anxiety neurosis, chronic insomnia, chronic obstructive pulmonary disease, hypertension, degenerative arthritis, history of old breast cancer in the distant past and abnormal chest computed tomographies with lung cancer being monitored outpatient by her oncologist who have opted to monitor and not treat the patient with chemo at this point in time. PLAN: The plan as discussed with the patient, emergency room physician, nursing and cardiac unit staff will be to admit this patient to the cardiac unit. She will be ordered to have blood and urine cultures and did receive dosing of Vibramycin and Bactrim in the Emergency Room today. The patient will also be given gentle IV fluids, orders for Ativan p.r.n. anxiety, dual nebulizer therapy q.6 hours, Rocephin 1 g IV q.24 and Zithromax 500 mg IV daily to be instituted tomorrow. She also has an order for Tylenol q.6 hours p.r.n. pain or fever, Robitussin-DM p.o. q.6 hours p.r.n. cough and she will have her Lopressor, Lipitor and Norvasc reordered as well. Patient will require pulmonary toiletry with Pulmicort inhalational therapy as well. I will order physical therapy for ambulation and reconditioning and ask case management to evaluate this patient for possible transitional care rehabilitation unit. Greater than 75 minutes was spent in the care, review of x-rays, labs, medication and orders and discussion of this patient's care with emergency room physician and cardiac unit nursing as well as patient. All questions were answered. Arcelia Wu MD MTDD
[2017-03-06] MEDS: Insulin Reg-LOW-Coverage SC SCH ×4 (07:53→23:34)
[2017-03-06] MEDS: Arformoterol 15 mcg/2 ml Inh Sol IH SCH (08:13)
[2017-03-06] MEDS: Budesonide 0.25 mg/2 ml Inhal Susp UD IH SCH (08:13)
--- NOTE | 2017-03-06 09:11 | CARD ---
APPROVED REPORT EKG Measurement Heart [id number] <Conclusion> Sinus tachycardia with occasional premature ventricular complexes and fusion complexes Left axis deviation Left bundle branch block Abnormal ECG
[2017-03-06] MEDS ORDERED: Nitroglycerin 2% Ointment Foilpak UD TOP PRN (09:51)
[2017-03-06] MEDS: Azithromycin 500MG/NS 250ml 500 MG/250 ML BAG IVPB SCH (09:56)
[2017-03-06] MEDS: cefTRIAXone 1 gm 1 GM/100 ML BAG IVPB SCH (09:56)
[2017-03-06] MEDS: Sodium Chloride 0.45% 1,000 ML IV SCH (15:55)
--- NOTE | 2017-03-06 22:21 | PN ---
DATE: 03/06/2017 SUBJECTIVE: This 87-year-old female was examined on the cardiac unit. Her case was reviewed in detail with herself and her nurse, Zakiya Burrell, registered nurse. The patient is receiving parenteral antibiotics. She received her dose of Rocephin without incident. She states she feels improved on parenteral antibiotics, but still has a cough with congestion and audible rhonchi. chemical economist shows a normal sinus rhythm. She denies fever or chills, and review of her medical record shows no fevers since admission. She denies any active chest pain. OBJECTIVE: VITAL SIGNS: Temperature is 97.5, respirations 19, pulse 69, blood pressure 150/60 with a pulse ox of 92% on room air. HEENT: Head is normocephalic, atraumatic. Eyes, no icterus. Ears, clear. Throat, noninjected. NECK: Supple. HEART: Regular. S1, S2. LUNGS: With rhonchi and wheezing bilaterally posteriorly. ABDOMEN: Soft. EXTREMITIES: No edema. SKIN: Without rash. NEUROLOGICAL: Intact. PSYCHOLOGICAL: Alert. VASCULAR: Legs warm to touch. LABORATORY DATA: White count 11,000, hemoglobin 13, hematocrit 39.8, platelets 191,000. PT/INR 1.32, PTT 31.6. Sodium 139, K 3.7, chloride 101, bicarb 27, BUN 19, creatinine 0.6, random blood sugar 269. Bilirubin 1.4, AST 21, ALT 27, alk phos 104. Urinalysis showed moderate bacteria. Blood and urine cultures have been sent. Results pending. ASSESSMENT: An 87-year-old female with exacerbation of chronic obstructive pulmonary disease, history of stable lung cancer, under no current chemotherapy by her oncologist, and history of right mastectomy for breast cancer in the distant past with comorbidities of chronic obstructive pulmonary disease, history of stable emphysema, anxiety neurosis, chronic insomnia, stable atherosclerotic heart disease, history of peripheral vascular disease - stable, degenerative arthritis, hyperlipidemia. PLAN: The plan as discussed with the patient, nursing and nurse practitioner will be to outline physical therapy for reconditioning and gait training and allow this patient bathroom privileges, and out of bed to chair with assistance while maintaining fall precautions. She remains on a heart-healthy bland diet. She has an order for 2 liters nasal O2 p.r.n., and will continue on Zithromax 500 mg IV daily, Xopenex inhalational therapy q.6h., Rocephin 1 g IV q. 24, Robitussin DM 5 mL p.o. q.6, Brovana inhalational therapy q.12h., Norvasc 5 mg p.o. daily, nitroglycerin 1 inch to chest wall q.4h. p.r.n. accelerated hypertension - if systolic blood pressure greater than 160 or diastolic blood pressure greater than 100, Lopressor 25 mg p.o. b.i.d., Lipitor 20 mg p.o. daily, regular low-dose insulin protocol a.c. meals and h.s., Ativan 0.5 mg p.o. q.6h. p.r.n. anxiety, and 0.9 saline at 60 mL/hour. The patient will have a CBC repeated in the morning. Blood and urine cultures will be checked. She will be evaluated for transitional care rehab and all the above was explained in detail with the patient, nursing, and case management. Greater than 35 minutes spent in the care, review of x-rays, labs, medication and outlining of orders for this patient today. All questions were answered. Arcelia Wu MD MTDD
[2017-03-07] MEDS: guaiFENesin DM 100 mg-10 mg/5 ml UD PO SCH ×3 (05:12→19:45)
[2017-03-07] MEDS: Sodium Chloride 0.45% 1,000 ML IV SCH (05:32)
--- NOTE | 2017-03-07 07:18 | PQF PNEUMO ---
This form is a permanent part of the medical record Dr. Wu, Medical record shows that patient was admitted with COPD exacerbation. Patient was afebrile on admission, wbc normal, CXR and CT chest without evidence of infiltrate. Your initial documentation in the H&P was "probable pneumonia". After workup complete, can you document if pneumonia was present on admission or ruled out. Clarification of your documentation is requested to better reflect the severity of illness and intensity of treatment of your patient. Indicators present [] Documented diagnosis of pneumonia [x] X-ray findings: [] Positive Sputum cultures [] Cough w/ fever [x] Abnormal lungs sounds [] Poor gag reflex [] Speech consults/swallow evaluation [] Vent dependence [] Other: [] Location in the medical record that reflects the above clinical findings: [] Treatment Provided: [] PHYSICIAN'S RESPONSE Based on your medical judgment of the clinical indicators outlined above, are you treating this patient for a known or suspected: [] Aspiration pneumonia [x] Community acquired pneumonia [] Ventilator associated pneumonia [] Viral pneumonia [] Bacterial pneumonia Please specify organism: [] [] Other, please indicate [] If Unable to Determine, please check the box, sign and date. Present On Admission (POA) Indicator: [x] Present at the time of admission [] Not present at the time of admission [] Clinically Undetermined In responding to this query, please exercise your independent professional judgment. The fact that a question is asked does not imply that any particular answer is desired or expected. Thank you for your clarification on this documentation. If you have any questions please call:[ ] * Thank you, [ ]Mary Ann Hennessy [facility] #[id number] hand cloth cutter ELAN
[2017-03-07] MEDS: Insulin Reg-LOW-Coverage SC SCH ×4 (08:32→21:35)
[2017-03-07] MEDS: cefTRIAXone 1 gm 1 GM/100 ML BAG IVPB SCH (10:36)
[2017-03-07] MEDS: Azithromycin 500MG/NS 250ml 500 MG/250 ML BAG IVPB SCH (10:36)
[2017-03-07] MEDS: Budesonide 0.25 mg/2 ml Inhal Susp UD IH SCH ×2 (11:02→19:32)
[2017-03-07] MEDS: Arformoterol 15 mcg/2 ml Inh Sol IH SCH ×2 (11:02→19:32)
--- NOTE | 2017-03-07 16:01 | PN ---
DATE: 03/07/2017 SUBJECTIVE: This 87-year-old female was examined on the cardiac polk. Her case was reviewed in detail with herself, her nurse, and nurse practitioner. The patient remains alert. She was reportedly confused last evening and agitated, requiring a one-to-one sitter that has been discontinued. At present, she knows she is in [facility]. She is aware it is Monday and February. When questioned on the year, she thought it was 2016 but when reminded it was February, changed her answer to 2018. She is cooperating with nursing staff and reportedly ate her breakfast this morning. She was admitted with exacerbation of chronic obstructive pulmonary disease in the setting of lung cancer and history of right breast cancer and mastectomy in the distant past. She denies chest pain. Her cough is nonproductive at present. There have been no reports of fever, chills or hemoptysis. PHYSICAL EXAMINATION: VITAL SIGNS: classroom monitor shows normal sinus rhythm. Temperature 97.6, respirations 20, pulse 63, blood pressure 143/69. Pulse ox 95%. HEENT: Head: Normocephalic, atraumatic. Eyes: No icterus. Ears: Clear. Throat: Noninjected. NECK: Supple. HEART: Regular S1, S2. LUNGS: Rhonchi bilaterally. No rales. Occasional wheezing that clears with coughing. ABDOMEN: Soft. EXTREMITIES: No edema. SKIN: Without rash. NEUROLOGICAL: Motor strength intact. VASCULAR: Legs warm to touch. PSYCHOLOGICAL: Alert and oriented at present. LABORATORY DATA: White count 11,000, hemoglobin 13, hematocrit 39.8, platelets 191,000. PT/INR 1.32, PTT 31.6. Blood sugars yesterday ranged from 123 to 269. Urinalysis showed moderate bacteria. Blood culture showed no growth at 24 hours. Urine culture remains pending. IMPRESSION: An 87-year-old female with exacerbation of chronic obstructive pulmonary disease and comorbidities of stable lung cancer with no changes on CT of the lung regarding her pulmonary masses and also anxiety neurosis, chronic insomnia, history of diet-controlled diabetes mellitus, hyperlipidemia, hypertension, stable atherosclerotic heart disease, history of carotid stenosis and endarterectomy, history of peripheral vascular disease, degenerative arthritis. PLAN: At present, as discussed with the patient, nursing, and nurse practitioner is to continue the patient on the cardiac polk while maintaining fall precautions and bathroom privileges with assistance and out of bed to chair as tolerated. She is ordered to receive physical therapy for ambulation safety. She continues on a heart-healthy moderate carbohydrate diet. She is ordered to have nasal O2 p.r.n. she will continue to receive Zithromax 500 mg IV daily, Xopenex inhalational therapy q.6 h., Rocephin 1 gm IV q.24, Robitussin 5 mL p.o. q.6, Brovana inhalational therapy q.12, Norvasc 5 mg p.o. daily, nitroglycerin 1 inch to the chest wall q.4 h. p.r.n. accelerated hypertension if her systolic blood pressure should be greater than 160 or diastolic blood pressure greater than 100, Lopressor 25 mg p.o. b.i.d., Lipitor 20 mg p.o. at dinnertime, Regular Insulin a.c. meals and at bedtime, low-dose protocol, Ativan 0.5 mg p.o. q.6 h. p.r.n. anxiety and 0.9 saline at 60 cc/hour. We will await the results of her urine culture. She is being evaluated for transitional care rehab, and all of the above was reviewed in detail with the patient, nursing, catalytic case operator, and nurse practitioner. Greater than 35 minutes was spent in the care, management, ordering of labs, medications, and review of x-rays for this patient today. All questions were answered. Arcelia Wu MD MTDD
[2017-03-08] MEDS: guaiFENesin DM 100 mg-10 mg/5 ml UD PO SCH ×4 (00:50→17:22)
[2017-03-08] MEDS: Sodium Chloride 0.45% 1,000 ML IV SCH ×2 (00:51→05:11)
[2017-03-08 06:52] LABS: BLOOD UREA NITROGEN 18 mg/dL (7-21); CALCIUM 8.5 mg/dL (8.4-10.5); GFR AFRICAN-AMERICAN > 60; GFR NON-AFRICAN AMERICAN > 60
[2017-03-08] MEDS: Insulin Reg-LOW-Coverage SC SCH ×4 (08:40→22:00)
[2017-03-08] MEDS: Budesonide 0.25 mg/2 ml Inhal Susp UD IH SCH ×2 (08:40→21:00)
[2017-03-08] MEDS: Arformoterol 15 mcg/2 ml Inh Sol IH SCH ×2 (08:40→21:00)
[2017-03-08] MEDS: cefTRIAXone 1 gm 1 GM/100 ML BAG IVPB SCH (09:15)
[2017-03-08] MEDS ORDERED: Potassium Chloride 20 mEq ER Tab PO STA (09:27)
--- NOTE | 2017-03-08 16:30 | PN ---
DATE: 03/08/2017 SUBJECTIVE: This 87-year-old female was examined at her bedside. Her case was reviewed in detail with her nurse, Mariel Dia, registered nurse. The patient remains hospitalized for exacerbation of chronic obstructive pulmonary disease in the setting of stable lung cancer. The patient was admitted with cough, congestion, shortness of breath and has discolored sputum. To date, microbiology studies show blood and urine cultures with no growth. The patient on admission had a brownish sputum. She says currently it is yellowish and more productive. She denies fever, chills, chest pain, or shortness of breath. PHYSICAL EXAMINATION: VITAL SIGNS: Temperature is 98.1, respirations 20, pulse 67, and blood pressure 142/63 with a pulse ox of 94% room air. HEENT: Head: Normocephalic, atraumatic. Eyes: No icterus. Ears: Clear. Throat: Noninjected. NECK: Supple. HEART: Regular, S1, S2. LUNGS: Have rhonchi posteriorly bilaterally with wheezing that clears with coughing. ABDOMEN: Soft. EXTREMITIES: No edema. SKIN: Without rash. NEUROLOGIC: Intact. PSYCHOLOGIC: Alert and oriented x3. VASCULAR: Legs warm to touch. White count 11,000, hemoglobin 13, hematocrit 39.8, platelets 191,000. PT/INR 1.32. Sodium 140, K 3.2, chloride 104, bicarb 28, BUN 18, creatinine 0.5, random blood sugar was 126. Blood sugar yesterday 158. Chest x-ray was reviewed. It showed no obvious pneumothorax, no pleural effusion, and evidence of chronic obstructive pulmonary disease with a CT of the lungs showing stable lung masses with no change from previous and no evidence of pulmonary embolism. IMPRESSION: An 87-year-old female with exacerbation of chronic obstructive pulmonary disease, bronchial pneumonia/bronchitis, and comorbidities of right breast cancer, status post mastectomy in the distant past, stable lung cancer, on no chemotherapeutic agents at present, under the followup of her outpatient oncologist, chronic anxiety neurosis, chronic insomnia, diet-controlled diabetes mellitus, hyperlipidemia, hypertension, stable atherosclerotic heart disease, degenerative arthritis, and stable peripheral vascular disease. PLAN: As discussed with the patient and nursing will be to continue fall precautions, out of bed to chair with assistance, and bathroom privileges with assistance while continuing nutritional supplement daily at dinnertime which consists of Glucerna shake, chocolate flavored, daily. She continues on heart-healthy diabetic diet. She has nasal O2 ordered p.r.n. She will continue on Zithromax 500 mg p.o. daily, Xopenex inhalational therapy q.6 h., Rocephin 1 gm IV q. 24 h., Robitussin DM 5 mL p.o. q.6 h., Pulmicort inhalational therapy q.12 h., Norvasc 5 mg p.o. daily, nitroglycerin to chest wall 1 inch q.4 h. p.r.n. accelerated hypertension if systolic blood pressure is greater than 160 or diastolic blood pressure is greater than 100, Lopressor 25 mg p.o. b.i.d., Lipitor 20 mg p.o. daily. A stat dose of K-Dur has been ordered for her newly noted hypokalemia and a repeat potassium level is ordered for the a.m. She continues on regular low-dose insulin coverage a.c. meals and at bedtime. She is ordered to have Ativan 0.5 mg p.o. q.6 h. p.r.n. anxiety. She will continue on Brovana inhalational therapy q.12 h. She has an order for Benadryl 25 mg IV q.8 h. p.r.n. pruritus, and ultimate plan is for this patient to be accepted to transitional care rehab for reconditioning, gait training, IV antibiotics, and pulmonary toiletry. Greater than 35 minutes was spent in the care, management, review of x-rays, labs, medication, and ordering of labs, medications, and discussion of this patient with nursing today. All questions were answered. Arcelia Wu MD ELAN
[2017-03-09 00:10] VITALS: RESP 20
[2017-03-09] MEDS: guaiFENesin DM 100 mg-10 mg/5 ml UD PO SCH ×3 (00:15→12:14)
[2017-03-09 05:50] VITALS: BP 162/54; PULSE 76; TEMP 98.1; O2SAT 95
[2017-03-09] MEDS: Insulin Reg-LOW-Coverage SC SCH ×2 (07:53→11:59)
[2017-03-09] MEDS: Arformoterol 15 mcg/2 ml Inh Sol IH SCH (08:05)
[2017-03-09] MEDS: Budesonide 0.25 mg/2 ml Inhal Susp UD IH SCH (08:05)
[2017-03-09] MEDS: cefTRIAXone 1 gm 1 GM/100 ML BAG IVPB SCH (10:23)
[2017-03-09] MEDS ORDERED: Potassium Chloride 20 mEq ER Tab PO SCH (10:45)
== END 2017-03-09 16:38 | DRG 190 ==
LOC: ED 11:45 → ERH 15:17 → 2RSO 17:57 → OBSVTOIN 03-06 09:49 → 2A 03-08 07:50
PROVIDERS: ADMIT Internal Medicine; ATTEND Internal Medicine
DX: J44.1 Chronic obstructive pulmonary disease with (acute) exacerbation (principal); J18.0 Bronchopneumonia, unspecified organism; E86.0 Dehydration; C34.90 Malignant neoplasm of unspecified part of unspecified bronchus or lung; I44.7 Left bundle-branch block, unspecified; E78.5 Hyperlipidemia, unspecified; F51.04 Psychophysiologic insomnia; F41.1 Generalized anxiety disorder; J44.0 Chronic obstructive pulmonary disease with (acute) lower respiratory infection; I10 Essential (primary) hypertension; I25.10 Atherosclerotic heart disease of native coronary artery without angina pectoris; M19.90 Unspecified osteoarthritis, unspecified site; Z98.61 Coronary angioplasty status; Z90.11 Acquired absence of right breast and nipple; Z85.3 Personal history of malignant neoplasm of breast; Z87.891 Personal history of nicotine dependence; Z79.899 Other long term (current) drug therapy; Z85.038 Personal history of other malignant neoplasm of large intestine; Z90.49 Acquired absence of other specified parts of digestive tract; Z88.0 Allergy status to penicillin; Z88.8 Allergy status to other drugs, medicaments and biological substances; R40.2412 Glasgow coma scale score 13-15, at arrival to emergency department

== ENCOUNTER 2017-03-09 16:38 | Inpatient (IN) | payer OTHER ==
[2017-03-09] MEDS ORDERED: DiphenhydrAMINE 50 mg/ml Inj IVP PRN (17:10)
[2017-03-09] MEDS ORDERED: Nitroglycerin 2% Ointment Foilpak UD TOP SCH (17:15)
[2017-03-09] MEDS: Potassium Chloride 20 mEq ER Tab PO SCH (18:19)
[2017-03-09] MEDS: guaiFENesin DM 100 mg-10 mg/5 ml UD PO SCH (18:21)
[2017-03-09] MEDS: Insulin Reg-LOW-Coverage SC SCH ×2 (18:22→22:41)
[2017-03-09] MEDS ORDERED: Nitroglycerin 2% Ointment Foilpak UD TOP PRN (18:45)
[2017-03-09] MEDS ORDERED: Arformoterol 15 mcg/2 ml Inh Sol IH SCH (20:00)
[2017-03-09 21:00] VITALS: BMI 16.0
[2017-03-09] MEDS ORDERED: Pneumococcal 23-Valent Vaccine IM ONE (21:00)
[2017-03-09] MEDS ORDERED: Influenza Vaccine 60 mcg/0.5 mL SYR (4YR UP) IM ONE (21:00)
[2017-03-09] MEDS: Levalbuterol 0.63 MG/3 ML Inhal Soln UD IH SCH (21:45)
[2017-03-09] MEDS: Arformoterol 15 mcg/2 ml Inh Sol IH SCH (21:45)
[2017-03-09] MEDS: Budesonide 0.25 mg/2 ml Inhal Susp UD IH SCH (21:45)
[2017-03-10] MEDS: guaiFENesin DM 100 mg-10 mg/5 ml UD PO SCH ×4 (00:35→17:46)
[2017-03-10] MEDS: Levalbuterol 0.63 MG/3 ML Inhal Soln UD IH SCH ×4 (01:51→21:33)
[2017-03-10] MEDS: cefTRIAXone 1 gm 1 GM/100 ML BAG IVPB SCH (05:58)
[2017-03-10] MEDS: Insulin Reg-LOW-Coverage SC SCH ×4 (06:35→22:29)
[2017-03-10] MEDS: Arformoterol 15 mcg/2 ml Inh Sol IH SCH ×2 (07:12→21:32)
[2017-03-10] MEDS: Budesonide 0.25 mg/2 ml Inhal Susp UD IH SCH ×2 (07:12→21:32)
[2017-03-10 07:16] LABS: HEMOGLOBIN 12.4 g/dL (12.0-16.0); MEAN CORPUSCULAR HEMOGLOBIN 29.5 pg (25.0-35.0); MEAN CORPUSCULAR HGB CONC 32.5 g/dl (31.0-37.0); MEAN PLATELET VOLUME 10.2 fl (7.0-11.0); RBC 4.2 10^6/uL (3.5-6.1); RED CELL DISTRIBUTION WIDTH 13.6 % (11.5-14.5); WHITE BLOOD COUNT 8.4 10^3/ul (4.5-11.0)
[2017-03-10 07:32] LABS: ALB/GLOB RATIO 1.2 (1.1-1.8); ALBUMIN 3.1 g/dL (3.0-4.8); ALT/SGPT 30 U/L (7-56); AST/SGOT 16 U/L (14-36); BLOOD UREA NITROGEN 19 mg/dL (7-21); CALCIUM 8.6 mg/dL (8.4-10.5); GFR AFRICAN-AMERICAN > 60; GFR NON-AFRICAN AMERICAN > 60
[2017-03-10] MEDS ORDERED: cefTRIAXone 1 gm 1 GM/100 ML BAG IVPB SCH ×2 (10:00→17:30)
[2017-03-10] MEDS: Potassium Chloride 20 mEq ER Tab PO SCH ×2 (10:45→17:46)
--- NOTE | 2017-03-10 17:27 | PN ---
DATE: 03/10/2017 SUBJECTIVE: This 87-year-old female was examined at her bedside, and her case was reviewed in detail with herself and her nurse, Jessica Bell, registered nurse. The patient was admitted with exacerbation of chronic obstructive pulmonary disease and acute delirium, that has resolved with the addition of IV antibiotics and pulmonary toiletry. The patient has a history of chronic obstructive pulmonary disease and stable lung cancer and is under no outpatient chemotherapy at this time by her oncologist. At present, the patient is alert, oriented and tolerating diet and medication well. She denies any fever, chills or hemoptysis. PHYSICAL EXAMINATION: VITAL SIGNS: Has a temperature of 98.4, respirations 18, pulse 75 and blood pressure 142/65. HEENT: Head: Normocephalic, atraumatic. Eyes: No icterus. Ears: Clear. Throat: Noninjected. NECK: Supple. HEART: Regular S1, S2. LUNGS: With rhonchi and wheezing posteriorly bilaterally with clearing with cough. ABDOMEN: Soft. EXTREMITIES: No edema. SKIN: Without rash. NEUROLOGICAL: Intact. PSYCHOLOGICAL: Alert and oriented x3. VASCULAR: Legs warm to touch. LABORATORY DATA: White count 8400, hemoglobin 12.4, hematocrit 38.2, platelets 229,000. Sodium 144, potassium 4.1, chloride 108, bicarb 26, BUN 19, creatinine 0.5. Random blood sugar 95, earlier 125. All liver function testing was normal including bilirubin 0.4, AST 16, ALT 30 and alk phos 84. IMPRESSION: This is an 87-year-old female with exacerbation of chronic obstructive pulmonary disease; resolved delirium and comorbidities of old right breast cancer, status post mastectomy and stable bilateral lung cancer, on no chemotherapy at the present time with diet controlled diabetes mellitus; hyperlipidemia; chronic hypertension; stable atherosclerotic heart disease; stable peripheral vascular disease; degenerative arthritis and chronic insomnia. PLAN: As discussed with the patient and Nursing will be to continue physical and occupational therapy for reconditioning and gait training. She remains on fall precautions, bathroom privileges with assistance and a heart-healthy soft bland diet. She is ordered to have nasal O2 p.r.n.; Zofran 4 mg IV q.8 hours p.r.n. nausea and vomiting; Zithromax 150 mg p.o. daily; Xopenex inhalational therapy q.6 hours; Rocephin 1 gm IV q.24; Robitussin DM 5 mL p.o. q.6 hours; Pulmicort inhalational therapy q.12; Norvasc 5 mg p.o. daily; nitroglycerin 1 inch to chest wall q.4 hours p.r.n. accelerated hypertension if systolic blood pressure is greater than 160 or diastolic blood pressure is greater than 100; Lopressor 25 mg p.o. b.i.d.; Lipitor 20 mg p.o. at bedtime; potassium chloride 20 mg p.o. b.i.d., potassium level will be rechecked in a.m.; insulin is regular low-dose protocol a.c. meals and at bedtime; Brovana inhalational therapy q.12 and Benadryl 25 mg IV q.8 hours p.r.n. pruritus. The patient will be treated as outlined above. She will be discharged to home when medically stable. All of the above was reviewed in detail with the patient, Physical Therapy and Nursing. Greater than 35 minutes were spent in the care, review of x-rays, labs, medication and ordering of medication and testing for this patient today. All questions were answered. Arcelia Wu MD MTDD
[2017-03-11] MEDS: Levalbuterol 0.63 MG/3 ML Inhal Soln UD IH SCH ×4 (03:00→20:15)
[2017-03-11] MEDS: cefTRIAXone 1 gm 1 GM/100 ML BAG IVPB SCH (05:14)
[2017-03-11] MEDS: guaiFENesin DM 100 mg-10 mg/5 ml UD PO SCH ×5 (05:15→23:19)
[2017-03-11] MEDS: Insulin Reg-LOW-Coverage SC SCH ×4 (06:46→22:09)
[2017-03-11] MEDS: Budesonide 0.25 mg/2 ml Inhal Susp UD IH SCH ×2 (07:14→20:15)
[2017-03-11] MEDS: Arformoterol 15 mcg/2 ml Inh Sol IH SCH ×2 (07:14→20:15)
[2017-03-11] MEDS: Potassium Chloride 20 mEq ER Tab PO SCH (10:43)
[2017-03-12] MEDS: Levalbuterol 0.63 MG/3 ML Inhal Soln UD IH SCH ×4 (01:29→20:05)
[2017-03-12] MEDS: cefTRIAXone 1 gm 1 GM/100 ML BAG IVPB SCH (05:21)
[2017-03-12] MEDS: guaiFENesin DM 100 mg-10 mg/5 ml UD PO SCH ×3 (05:21→17:18)
[2017-03-12] MEDS: Insulin Reg-LOW-Coverage SC SCH ×4 (06:47→22:24)
[2017-03-12] MEDS: Budesonide 0.25 mg/2 ml Inhal Susp UD IH SCH ×2 (07:37→20:05)
[2017-03-12] MEDS: Arformoterol 15 mcg/2 ml Inh Sol IH SCH ×2 (07:37→20:05)
[2017-03-12] MEDS ORDERED: Potassium Chloride 20 mEq ER Tab PO SCH (10:00)
[2017-03-13] MEDS: guaiFENesin DM 100 mg-10 mg/5 ml UD PO SCH ×4 (00:10→17:42)
--- NOTE | 2017-03-13 01:45 | PN ---
DATE: 03/12/2017 SUBJECTIVE: This 87-year-old female was examined at the bedside and this case was reviewed in detail with her son, Yovani who is at the bedside as well as her nurse, Yanely Sellers, registered nurse. The patient is much more alert and oriented. She is cooperating with physical therapy as well as nursing staff. She denies any fever or chills. States she has a loose productive cough and has no chest pain or hemoptysis. PHYSICAL EXAMINATION VITAL SIGNS: She was noted to have a temperature of 97.66, respirations of 18, pulse of 82 and blood pressure of 143/55. Pulse ox is 95% on room air. HEENT: Head, normocephalic, atraumatic. Eyes: No icterus. Ears: Clear. Throat: Noninjected. NECK: Supple. HEART: Regular S1, S2. LUNGS: With bilateral rhonchi and expiratory wheezing that clear with coughing. ABDOMEN: Soft. EXTREMITIES: No edema. SKIN: Without rash. NEUROLOGIC: Intact. PSYCHOLOGICAL: Alert. VASCULAR: Legs warm to touch. LABORATORY DATA: White count 8400, hemoglobin 12.4, hematocrit 38.2, platelets 229,000. Sodium 144, K 4.5, chloride 108, bicarb 26, BUN 19, creatinine 0.5, random blood sugar 91. All liver function testing normal including bilirubin 0.4, AST 16, AST 30 and alk phos 84. IMPRESSION: An 87-year-old female with exacerbation of chronic obstructive pulmonary disease, history of stable lung cancer on no outpatient chemotherapy at present, and history of distant right breast cancer with mastectomy in the distant past with comorbidities of insulin-dependent diabetes mellitus; hypokalemia, resolved; hyperlipidemia, hypertension, stable atherosclerotic heart disease, history of peripheral vascular disease, degenerative arthritis. PLAN: Plan is discussed with patient, nursing, family at bedside will be to continue physical therapy for reconditioning and gait training and allowing patient out of bed to chair as tolerated while maintaining fall prevention precautions. She is allowed bathroom privileges with assistance and continues on a soft bland, heart healthy diet. She is ordered to have nasal O2 p.r.n. and will continue on Zithromax 250 mg p.o. daily, Xopenex inhalational therapy q.6 hours, Rocephin 1 gm IV q. 24, Robitussin DM 5 mL p.o. q.6, Pulmicort inhalational therapy q.12, Norvasc 5 mg p.o. daily, nitroglycerin 1 inch to chest wall q.4h. p.r.n. accelerated hypertension if systolic blood pressure should be greater than 160 or diastolic blood pressure should be greater than 100, Lopressor 25 mg p.o. b.i.d., Lipitor 20 mg p.o. at bedtime, potassium will be discontinued, insulin protocol a.c. meals and at bedtime; will continue Brovana inhalational therapy q.12. The patient will have a repeat potassium level in the morning. She is ordered to have physical therapy daily and ultimate plan will be for discharge to home when medically stable. All of the above was reviewed in detail with the patient, nursing son at bedside and physical therapy. Greater than 35 minutes was spent in the care, review of meds, x-rays, labs, orders and discussion of the patient's clinical progress with family. All questions were answered. Arcelia Wu MD ELAN
[2017-03-13] MEDS: Levalbuterol 0.63 MG/3 ML Inhal Soln UD IH SCH ×4 (02:12→21:15)
[2017-03-13] MEDS: cefTRIAXone 1 gm 1 GM/100 ML BAG IVPB SCH (05:32)
[2017-03-13] MEDS: Insulin Reg-LOW-Coverage SC SCH ×4 (06:46→22:02)
[2017-03-13] MEDS: Budesonide 0.25 mg/2 ml Inhal Susp UD IH SCH ×2 (07:30→21:15)
[2017-03-13] MEDS: Arformoterol 15 mcg/2 ml Inh Sol IH SCH ×2 (07:30→21:15)
--- NOTE | 2017-03-13 09:09 | PN ---
DATE: 03/11/2017 SUBJECTIVE: This 87-year-old female was examined at her bedside. Her family including her son, Yovani and [id number] were present. The case was reviewed in detail with nurse, Yanely Sellers registered nurse as well. The patient remains hospitalized with exacerbation of chronic obstructive pulmonary disease, status post acute delirium in the setting of stable lung cancer. The patient today denies any fever, chills, chest pain or shortness of breath. She is more oriented and alert and oriented x3. There have been no reports of fever, chills, chest pain. PHYSICAL EXAMINATION: VITAL SIGNS: Temperature is 97.8, respirations 18, pulse 71, blood pressure 136/63 with a pulse ox 96%. HEENT: Head, normocephalic, atraumatic. Eyes, no icterus. Ears clear. Throat noninjected. NECK: Supple. HEART: Regular S1, S2. LUNGS: With occasional rhonchi they are cleared with coughing. ABDOMEN: Soft. EXTREMITIES: No edema. SKIN: Without rash. NEUROLOGICAL: Intact. PSYCHOLOGICAL: Alert. VASCULAR: Legs warm to touch. LABORATORY DATA: White count 8400, hemoglobin 12.4, hematocrit 38.2, platelets 229,000. Sodium 144, K 4.1, chloride 108, bicarb 26, BUN 19, creatinine 0.5, random blood sugar 96. All liver function testing was normal including bilirubin 0.4, AST 16, ALT 30 and alk phos 84. Repeat potassium 4.4. IMPRESSION: An 87-year-old female with multiple medical problems including exacerbation of chronic obstructive pulmonary disease, acute delirium resolved, metabolic encephalopathy improved, chronic obstructive pulmonary disease, insulin-dependent diabetes mellitus, hypokalemia improving, hyperlipidemia, stable atherosclerotic heart disease, peripheral vascular disease, history of carotid endarterectomy, history of right breast cancer and mastectomy in the distant past and stable, lung cancer on no chemotherapy at present. PLAN: As discussed with the patient, nursing and family at bedside will be to continue physical and occupational therapy for reconditioning and gait training. The patient is ordered to have Glucerna shakes twice daily for nutritional support. She is allowed out of bed to chair with fall precautions and bathroom privileges in effect and continues on a soft bland, heart-healthy diabetic diet. She has nasal O2 p.r.n. and will continue Zithromax, Xopenex, IV Rocephin, Robitussin DM, Pulmicort inhalational therapy, Norvasc, nitroglycerin ointment p.r.n. accelerated hypertension if systolic blood pressure greater than 160 or diastolic blood pressure greater than 100, Lopressor, Lipitor. I am reducing K-Dur to 20 mEq p.o. daily while monitoring daily potassium level, regular low-dose insulin protocol, Brovana inhalational therapy. She will have potassium level checked in a.m. and ultimate plan will be for discharge to home when medically stable. All of the above was discussed in detail. Greater than 35 minutes was spent in the care, counseling, management and discussion of patient with family at bedside. All questions were answered. Arcelia Wu MD ELAN
[2017-03-13 19:30] LABS: BASO # 0.02 K/mm3 (0.0-2.0); BASO % 0.4 % (0.0-3.0); EOS % 0.4 % (1.5-5.0); GRAN # 3.92 (1.4-6.5); GRAN % 73.5 % (50.0-68.0); HEMOGLOBIN 11.4 g/dL (12.0-16.0); LYMPH # 0.8 (1.2-3.4); LYMPH % 15.6 % (22.0-35.0); MEAN CELL VOLUME 90.1 fl (80.0-105.0); MEAN CORPUSCULAR HEMOGLOBIN 29.6 pg (25.0-35.0); MEAN CORPUSCULAR HGB CONC 32.9 g/dl (31.0-37.0); MEAN PLATELET VOLUME 9.1 fl (7.0-11.0); MONO # 0.5 (0.1-0.6); MONO % 10.1 % (1.0-6.0); RBC 3.85 10^6/uL (3.5-6.1); RED CELL DISTRIBUTION WIDTH 13.9 % (11.5-14.5); WHITE BLOOD COUNT 5.3 10^3/ul (4.5-11.0)
[2017-03-13] MEDS: Cefpodoxime (Vantin) 200 mg Tab PO SCH (21:03)
[2017-03-13 23:30] LABS: URINE BILIRUBIN NEGATIVE (NEGATIVE); URINE BLOOD NEGATIVE (NEGATIVE); URINE GLUCOSE (UA) NEGATIVE (NEGATIVE); URINE LEUKOCYTE ESTERASE NEGATIVE Leu/uL (NEGATIVE); URINE NITRATE NEGATIVE (NEGATIVE); URINE PROTEIN TRACE mg/dL (<30 mg/dL); URINE UROBILINOGEN 0.2 E.U./dL (<1 E.U./dL)
[2017-03-13 23:37] LABS: URINE APPEARANCE CLEAR (CLEAR); URINE COLOR YELLOW (YELLOW)
[2017-03-13 23:59] LABS: URINE EPITHELIAL CELLS 0 - 2 /hpf (0-5); URINE RBC 0 - 2 /hpf (0-2); URINE WBC 0 - 2 /hpf (0-6)
--- NOTE | 2017-03-14 00:38 | PN ---
DATE: 03/13/2017 SUBJECTIVE: This 87-year-old female was examined in the physical therapy unit. She was attending a physical therapy session in the presence of her physical therapist. The patient denied any fever, chills, chest pain or shortness of breath and was cooperating with nursing staff. She admits to a loose cough that is nonbloody. PHYSICAL EXAMINATION VITAL SIGNS: Temperature 98, respirations 20, pulse 97, and blood pressure 105/77 with a pulse ox of 94% on room air. HEENT: Head: Normocephalic, atraumatic. Eyes: No icterus. Ears: Clear. Throat: Noninjected. NECK: Supple. HEART: Regular S1, S2. LUNGS: With rhonchi that clear with coughing. ABDOMEN: Soft. EXTREMITIES: No edema. SKIN: Without rash. NEUROLOGICAL: Intact. PSYCHOLOGICAL: Alert. VASCULAR: Legs warm to touch. LABORATORY DATA: White count 8400, hemoglobin 12.4, hematocrit 38.2, platelets 229,000. Sodium 144, K 4.1, chloride 108, bicarb 26, BUN 19, creatinine 0.5, random blood sugar 97. All liver function testing normal including bilirubin 0.4, AST 36, ALT 30, and alk phos 84. IMPRESSION: An 87-year-old female admitted with exacerbation of chronic obstructive pulmonary disease with history of stable lung cancer, on no chemotherapy at this time; and history of right mastectomy and breast cancer in the distant past with comorbidities of insulin-dependent diabetes mellitus, hyperlipidemia, chronic hypertension, stable atherosclerotic heart disease, history of peripheral vascular disease, degenerative arthritis, anxiety neurosis, metabolic encephalopathy and status post acute delirium, resolved. PLAN: Plan as discussed with the patient, nursing and family previously will be to continue physical and occupational therapy for reconditioning, gait training, staircase safety training and ambulation safety. She continues on her Glycerna drinks as a supplement daily. She remains on fall precautions and bathroom privileges with assistance. She will continue on a heart-healthy soft bland diabetic diet, nasal O2 p.r.n., Zithromax 250 mg p.o. daily, Xopenex inhalational therapy q.6, Vantin 200 mg p.o. q.12, Robitussin DM 5 ml p.o. q.6, Pulmicort inhalational therapy q.12 hours, Norvasc 5 mg p.o. daily, nitroglycerin ointment 1 inch to chest wall q.4 hours p.r.n. accelerated hypertension if systolic blood pressure greater than 160 or diastolic blood pressure greater than 100, Lopressor 25 mg b.i.d., Lipitor 20 mg p.o. daily, regular low-dose insulin coverage a.c. meals at bedtime, Brovana inhalational therapy q.12, oral potassium has been discontinued and she will have a repeat potassium level in the a.m. Ultimate plan will be for discharge to home when medically stable. All of the above was reviewed in detail with the patient, nurse, Jessica Bell, registered nurse and physical therapy. All questions were answered. Arcelia Wu MD MTDDilan
[2017-03-14] MEDS: guaiFENesin DM 100 mg-10 mg/5 ml UD PO SCH ×4 (01:19→17:35)
[2017-03-14] MEDS: Levalbuterol 0.63 MG/3 ML Inhal Soln UD IH SCH ×4 (02:00→21:35)
[2017-03-14] MEDS: Insulin Reg-LOW-Coverage SC SCH ×4 (06:33→21:57)
[2017-03-14] MEDS: Arformoterol 15 mcg/2 ml Inh Sol IH SCH ×2 (07:15→21:35)
[2017-03-14] MEDS: Budesonide 0.25 mg/2 ml Inhal Susp UD IH SCH ×2 (07:15→21:35)
[2017-03-14] MEDS: Cefpodoxime (Vantin) 200 mg Tab PO SCH (10:07)
[2017-03-14] MEDS ORDERED: Vancomycin 1 g Inj IVPB SCH (10:15)
[2017-03-14] MEDS ORDERED: Cefepime 1gm in NS 100ml 1 GM/100 ML BAG IVPB SCH (10:15)
--- NOTE | 2017-03-14 18:09 | PN ---
DATE: 03/14/2017 SUBJECTIVE: This 87-year-old female was examined in the physical therapy unit where she was performing gait training and bicycle reconditioning exercises in the presence of her physical therapist. Last evening, she had a low grade temperature of 100.7. The patient was fully re-cultured and has been ordered to have a stat repeat chest x-ray today. It should be noted that a repeat CBC was performed last evening. It showed a white blood cell count of 5300, hemoglobin 11.4, hematocrit 34.7, and platelets of 194,000. The patient denies any fever, chills, chest pain, or shortness of breath. PHYSICAL EXAMINATION: VITAL SIGNS: At present has a temperature of 99, respirations 18, pulse 94, and blood pressure 147/69. Pulse ox 91%. HEENT: Head: Normocephalic, atraumatic. Eyes: No icterus. Ears: Clear. Throat: Noninjected. NECK: Supple. HEART: Regular. S1, S2. LUNGS: With occasional rhonchi that clear with coughing. ABDOMEN: Soft. EXTREMITIES: No edema. SKIN: Without rash. NEUROLOGICAL: Intact. PSYCHOLOGICAL: Alert. VASCULAR: Legs warm to touch. LABORATORY DATA: White count 5300, hemoglobin 11.4, hematocrit 34.7, platelets 194,000. Random blood sugar 85. Potassium level 3.8. IMPRESSION: An 87-year-old female with exacerbation of chronic obstructive pulmonary disease, history of lung cancer, insulin-dependent diabetes mellitus, hyperlipidemia, chronic hypertension, stable atherosclerotic heart disease, degenerative arthritis, deconditioning, history of distant right mastectomy and breast cancer in the past. PLAN: As discussed with the patient and her nurse, Jessica Bell, as well as her physical therapist will be to continue out of bed to chair with assistance, fall precautions, bathroom privileges, and heart-healthy soft, bland diet. She is ordered to have nasal O2 p.r.n. I have ordered a PA and lateral chest x-ray, and the patient will continue on Zithromax 250 mg p.o. daily, Xopenex inhalational therapy 0.63 inhalational q.6 hours, Robitussin 5 mL p.o. q.6 hours, Pulmicort inhalational therapy q.12, Norvasc 5 mg p.o. daily, Lopressor 25 mg b.i.d., Lipitor 20 mg p.o. daily, insulin protocol before meals and at bedtime, low-dose Brovana inhalational therapy q.12. Repeat blood, urine, and sputum cultures will be reviewed. She is ordered to have a basic metabolic panel and CBC in the a.m., and ultimate plan will be for discharge to home when medically and clinically stable. Arcelia Wu MD MTDDilan
--- NOTE | 2017-03-14 18:20 | RAD ---
HISTORY: cough r/o pneumonia COMPARISON: 03/05/2017 single-view chest. 03/05/2017 CT pulmonary angiogram TECHNIQUE: Chest PA and lateral FINDINGS: LUNGS: Hyperinflation, manifestations of COPD. No active pulmonary disease. PLEURA: No significant pleural effusion identified. No pneumothorax apparent. CARDIOVASCULAR: Normal. OSSEOUS STRUCTURES: No significant abnormalities. VISUALIZED UPPER ABDOMEN: Normal. OTHER FINDINGS: None. IMPRESSION: No active disease. No significant interval change compared to the prior chest x-ray. The findings on CT scan with respect pulmonary parenchyma are not appreciated on plain film radiographs.
[2017-03-15] MEDS: guaiFENesin DM 100 mg-10 mg/5 ml UD PO SCH ×2 (00:04→05:38)
[2017-03-15] MEDS: Levalbuterol 0.63 MG/3 ML Inhal Soln UD IH SCH ×4 (02:30→19:54)
[2017-03-15] MEDS: Insulin Reg-LOW-Coverage SC SCH ×4 (06:29→22:47)
[2017-03-15 07:32] LABS: HEMOGLOBIN 11.9 g/dL (12.0-16.0); MEAN CELL VOLUME 90.5 fl (80.0-105.0); MEAN CORPUSCULAR HEMOGLOBIN 29.6 pg (25.0-35.0); MEAN CORPUSCULAR HGB CONC 32.7 g/dl (31.0-37.0); MEAN PLATELET VOLUME 9.2 fl (7.0-11.0); RBC 4.02 10^6/uL (3.5-6.1); RED CELL DISTRIBUTION WIDTH 13.9 % (11.5-14.5); WHITE BLOOD COUNT 5.6 10^3/ul (4.5-11.0)
[2017-03-15] MEDS: Arformoterol 15 mcg/2 ml Inh Sol IH SCH ×2 (07:41→19:53)
[2017-03-15] MEDS: Budesonide 0.25 mg/2 ml Inhal Susp UD IH SCH ×2 (07:41→19:53)
[2017-03-15 07:44] LABS: BLOOD UREA NITROGEN 24 mg/dL (7-21); CALCIUM 8.3 mg/dL (8.4-10.5); GFR AFRICAN-AMERICAN > 60; GFR NON-AFRICAN AMERICAN > 60
[2017-03-15] MEDS ORDERED: guaiFENesin DM 100 mg-10 mg/5 ml UD PO SCH (11:50)
[2017-03-15] MEDS: guaiFENesin DM 200 mg-20 mg/10 ml UD PO SCH ×2 (12:54→17:32)
--- NOTE | 2017-03-15 23:39 | PN ---
DATE: 03/15/2017 SUBJECTIVE: This 87-year-old female was examined at her bedside, and this case was reviewed in detail with herself and nurse, Yanely Sellers, registered nurse. The patient continues with a productive cough of white tinged sputum. She denies fever or chills but states she was coughing most of the evening which disrupted her sleep last night. She is cooperating with physical, occupational therapy, and nursing staff, and is tolerating diet and medications. There have been no reports of fever, and a chest x-ray that was done yesterday was reviewed and shows no evidence of pulmonary infiltrate, pneumothorax, pneumonia or effusion. OBJECTIVE: VITAL SIGNS: At present, the patient's temperature is 98, respirations 18, pulse 81, and blood pressure 115/63 with a pulse ox of 92%. HEENT: Head is normocephalic, atraumatic. Eyes: No icterus. Ears: Clear. Throat: Noninjected. NECK: Supple. HEART: Regular S1, S2. LUNGS: Have rhonchi bilaterally, posterior lung field. No wheezing and no rales. ABDOMEN: Soft. EXTREMITIES: No edema. SKIN: Without rash. NEUROLOGIC: Intact. PSYCHOLOGIC: Anxious. VASCULAR: Legs warm to touch. LABORATORY DATA: White count 5600, hemoglobin 11.9, hematocrit 36.4, platelets 204,000. Sodium 136, K 3.9, chloride 101, bicarb 27, BUN 24, creatinine 0.5, random blood sugar is 97, calcium 8.3. IMPRESSION: An 87-year-old female with history of lung cancer, under no chemotherapy at present with history of bronchial pneumonia, cough and congestion, and history of right breast cancer and mastectomy in the distant past with comorbidities of diet-controlled diabetes mellitus, stable atherosclerotic heart disease, peripheral vascular disease, chronic hypertension, hyperlipidemia, degenerative arthritis, and anxiety neurosis, and recent delirium upon admission with exacerbation of chronic obstructive pulmonary disease and bronchitis. PLAN: Plan as discussed with the patient, family, and nursing will be to continue physical and occupational therapy for reconditioning and gait training, and she has an order for out of bed to chair with assistance, fall precautions, and bathroom privileges with assistance. She continues on a heart-healthy soft bland diet, nasal O2 p.r.n. She is ordered to receive Zithromax 250 mg p.o. daily, Xopenex inhalational therapy q.6 hours, Tessalon Perles has been added at 100 mg p.o. t.i.d., and she has had her Robitussin-DM increased to 10 mL p.o. q.6 hours. She is ordered to have Pulmicort inhalational therapy q.12, Norvasc 5 mg p.o. daily, nitroglycerin 1 inch to chest wall q.4 hours if systolic blood pressure is greater than 160 or diastolic blood pressure greater than 100. She continues on Lopressor 25 mg p.o. b.i.d. to be held if her systolic blood pressure is less than 100 or pulse is less than 50. Lipitor continues at 20 mg p.o. at dinner time, regular low-dose insulin protocol will be followed a.c. meals and at bedtime. She is ordered to get Brovana inhalational therapy q.12 and blood in sputum culture show no growth at present. All of the above was reviewed in detail with the patient, nursing and family. Greater than 35 minutes was spent in the care management, review of x-rays, labs, and adjustment of medications for this patient today as well as counseling. All questions were answered. Arcelia Wu MD MTDD
[2017-03-16] MEDS: guaiFENesin DM 200 mg-20 mg/10 ml UD PO SCH ×4 (00:26→17:28)
[2017-03-16] MEDS: Insulin Reg-LOW-Coverage SC SCH ×4 (06:45→22:22)
[2017-03-16] MEDS: Arformoterol 15 mcg/2 ml Inh Sol IH SCH ×2 (07:18→20:47)
[2017-03-16] MEDS: Levalbuterol 0.63 MG/3 ML Inhal Soln UD IH SCH ×3 (07:19→20:52)
[2017-03-16] MEDS: Budesonide 0.25 mg/2 ml Inhal Susp UD IH SCH ×2 (07:19→20:48)
[2017-03-16 11:23] VITALS: RESP 18
[2017-03-16] MEDS ORDERED: Potassium Chloride 20 mEq ER Tab PO ONE (12:43)
[2017-03-16 17:46] VITALS: O2SAT 94
--- NOTE | 2017-03-16 22:58 | PN ---
DATE: 03/16/2017 SUBJECTIVE: This 87-year-old female was examined at her bedside, and this case was reviewed in detail with her nurse. The patient had a better night last night, slept more soundly, and at present, has a loose productive cough of whitish sputum. She denies fever, chills, chest pain, or shortness of breath. PHYSICAL EXAMINATION: VITAL SIGNS: Temperature is 98.7, respirations 18, pulse 85, and blood pressure 126/47. Pulse ox was 93% on room air. HEENT: Head: Normocephalic, atraumatic. Eyes: No icterus. Ears: Clear. Throat: Noninjected. NECK: Supple. HEART: S1, S2. LUNGS: With occasional rhonchi that is clear with coughing. ABDOMEN: Soft. EXTREMITIES: No edema. SKIN: Without rash. NEUROLOGIC: Intact. PSYCHOLOGICAL: Alert. VASCULAR: Legs warm to touch. LABORATORY DATA: White count 5600, hemoglobin 11.9, hematocrit 36.4, platelets 204,000. Sodium 136, K 3.9, chloride 101, bicarb 27, BUN 24, creatinine 0.5, random blood sugar 88. Blood and urine cultures, no growth at present. Sputum culture normal oral jayla. IMPRESSION: This is an 87-year-old female with exacerbation of chronic obstructive pulmonary disease and comorbidities of insulin-dependent diabetes mellitus, chronic hypertension, hyperlipidemia, chronic obstructive pulmonary disease, history of lung cancer, on no chemotherapy at present with history of right breast mastectomy and cancer in the distant past. PLAN: Plan as discussed with the patient and nursing will be to continue physical and occupational therapy for reconditioning and gait training. She continues on out of bed to chair, fall precautions, and bathroom privileges with assist. She remains on a soft bland, heart-healthy diabetic diet, and is receiving Zithromax 250 mg p.o. daily, Xopenex inhalational therapy q.6 hours, Tessalon Perles 100 mg p.o. t.i.d., Robitussin DM 10 mL p.o. q.6 hours, Pulmicort inhalational therapy q.12, Norvasc 5 mg p.o. daily, metoprolol tartrate 25 mg b.i.d., Lipitor 20 mg p.o. at bedtime, Lasix 20 mg IV x1 dose, and potassium chloride 20 mEq p.o. x1 dose will be administered now. Insulin regular low-dose protocol a.c. meals and at bedtime, Brovana inhalational therapy q.12. The patient's O2 sats will be monitored. Discussion regarding home O2 will be pursued with the patient in the a.m. based on clinical response, and ultimate plan will be for discharge to home with medical followup as an outpatient. Greater than 35 minutes was spent in the care management, review of x-rays, labs, medication with the patient and staff. All questions were answered. Arcelia Wu MD MTDD
[2017-03-17] MEDS: guaiFENesin DM 200 mg-20 mg/10 ml UD PO SCH ×3 (00:06→12:31)
[2017-03-17] MEDS: Insulin Reg-LOW-Coverage SC SCH ×2 (06:31→12:30)
[2017-03-17] MEDS: Budesonide 0.25 mg/2 ml Inhal Susp UD IH SCH (07:53)
[2017-03-17] MEDS: Levalbuterol 0.63 MG/3 ML Inhal Soln UD IH SCH ×2 (07:53→15:24)
[2017-03-17] MEDS: Arformoterol 15 mcg/2 ml Inh Sol IH SCH (07:53)
[2017-03-17 11:09] VITALS: BP 124/59; PULSE 77
[2017-03-17 16:13] VITALS: TEMP 97.6
--- NOTE | 2017-03-18 03:12 | DS ---
FINAL DIAGNOSES: Exacerbation of chronic obstructive pulmonary disease, improved; insulin-dependent diabetes mellitus, improved; hyperlipidemia; chronic hypertension; stable atherosclerotic heart disease; history of peripheral vascular disease; history of right breast cancer and mastectomy in distant past; history of lung cancer, on no chemotherapy at the present time; and deconditioning, improved. DISPOSITION: Home. FOLLOWUP: Follow up with Dr. Fernando Fuller, Oncology and follow up with myself in 1 week. The patient advised for any worsening signs and symptoms to present directly to the [facility] ER. DISCHARGE MEDICATIONS: Norvasc 5 mg p.o. daily, metoprolol tartrate 25 mg p.o. b.i.d., Lipitor 20 mg p.o. at bedtime, Robitussin DM 5 mL p.o. q.6 hours p.r.n. cough, Tessalon Perles 100 mg p.o. t.i.d. x1 week p.r.n. cough, and also ProAir inhaler 2 puffs q.6 hours p.r.n. shortness of breath. SUMMARY: This is an 87-year-old female who was admitted to [facility] for continued therapy of exacerbation of chronic obstructive pulmonary disease and need for reconditioning and gait training. The patient's hospital course was notable for improvement in all parameters and at the time of discharge, the patient was deemed independent in ambulation, staircase safety, and vital signs showed temperature 97.8, respirations 18, pulse 78, pulse ox 94% on room air, and blood pressure 124/59. Labs showed white count 5600, hemoglobin 11.9, hematocrit 36.4, and platelets 204,000. Random blood sugar 127. Sodium 136, K 3.9, chloride 101, bicarb 27, BUN 24, and creatinine 0.5. Chest x-ray was reviewed, which showed evidence of chronic obstructive pulmonary disease, but no active infiltrate, effusion, or pneumothorax was noted. The patient was cleared for discharge to home. She was instructed on all the above orders. All questions were answered. The patient will have 24 hours supervision with her family providing support at home and the patient states she is comfortable with discharge and instructions as outlined. Overall prognosis remains stable. Arcelia Wu MD [facility] # [id number] ELAN
== END 2017-03-17 16:57 | disposition home or self-care (01) | DRG 191 ==
LOC: TRCU 16:38
PROVIDERS: ADMIT Internal Medicine; ATTEND Internal Medicine
PROC: 3E0F7GC Introduction of Other Therapeutic Substance into Respiratory Tract, Via Natural or Artificial Opening (ICD-10-PCS; 2017-03-09)
PROC: F07Z9ZZ Gait Training/Functional Ambulation Treatment (ICD-10-PCS; principal; 2017-03-10)
PROC: F08Z4ZZ Home Management Treatment (ICD-10-PCS; 2017-03-10)
DX: J44.1 Chronic obstructive pulmonary disease with (acute) exacerbation (principal); C34.90 Malignant neoplasm of unspecified part of unspecified bronchus or lung; E11.51 Type 2 diabetes mellitus with diabetic peripheral angiopathy without gangrene; I25.10 Atherosclerotic heart disease of native coronary artery without angina pectoris; E78.5 Hyperlipidemia, unspecified; R41.0 Disorientation, unspecified; E87.6 Hypokalemia; I10 Essential (primary) hypertension; M19.90 Unspecified osteoarthritis, unspecified site; F41.1 Generalized anxiety disorder; F51.04 Psychophysiologic insomnia; Z85.3 Personal history of malignant neoplasm of breast; Z90.10 Acquired absence of unspecified breast and nipple

== ENCOUNTER 2017-09-08 13:53 | Inpatient (IN) | payer MEDICARE, OTHER ==
[2017-09-08 14:18] VITALS: BMI 19.8
[2017-09-08 15:35] LABS: BASO # 0.02 K/mm3 (0.0-2.0); BASO % 0.3 % (0.0-3.0); EOS # 0.1 (0.0-0.7); EOS % 0.8 % (1.5-5.0); GRAN # 4.67 (1.4-6.5); HEMOGLOBIN 13.7 g/dL (12.0-16.0); LYMPH # 1.2 (1.2-3.4); LYMPH % 18.4 % (22.0-35.0); MEAN CELL VOLUME 87.4 fl (80.0-105.0); MEAN CORPUSCULAR HEMOGLOBIN 30.2 pg (25.0-35.0); MEAN CORPUSCULAR HGB CONC 34.6 g/dl (31.0-37.0); MEAN PLATELET VOLUME 9.7 fl (7.0-11.0); MONO # 0.6 (0.1-0.6); MONO % 8.5 % (1.0-6.0); RBC 4.53 10^6/uL (3.5-6.1); WHITE BLOOD COUNT 6.5 10^3/ul (4.5-11.0)
[2017-09-08 15:49] LABS: ALB/GLOB RATIO 1.6 (1.1-1.8); BLOOD UREA NITROGEN 20 mg/dL (7-21); CALCIUM 9.2 mg/dL (8.4-10.5); GFR AFRICAN-AMERICAN > 60; GFR NON-AFRICAN AMERICAN > 60
[2017-09-08 15:50] LABS: ALT/SGPT 34 U/L (7-56); AST/SGOT 30 U/L (14-36)
[2017-09-08 16:01] LABS: B-TYPE NATRIURETIC PEPTIDE 581 pg/mL (0-450); TROPONIN I < 0.01 ng/mL
[2017-09-08 16:03] LABS: URINE APPEARANCE CLEAR (CLEAR); URINE BILIRUBIN NEGATIVE (NEGATIVE); URINE BLOOD NEGATIVE (NEGATIVE); URINE COLOR YELLOW (YELLOW); URINE GLUCOSE (UA) NEGATIVE (NEGATIVE); URINE LEUKOCYTE ESTERASE NEGATIVE Leu/uL (NEGATIVE); URINE PROTEIN NEGATIVE mg/dL (<30 mg/dL); URINE UROBILINOGEN 0.2 E.U./dL (<1 E.U./dL)
[2017-09-08 16:11] LABS: INR 1.03 (0.93-1.08); PARTIAL THROMBOPLASTIN TIME 28.6 Seconds (25.1-36.5); PROTHROMBIN TIME 11.7 SECONDS (9.4-12.5)
--- NOTE | 2017-09-08 16:12 | ED PDOC ---
Arrival/HPI - General Chief Complaint: Abnormal Skin Integrity Time Seen by Provider: 09/08/17 14:58 Historian: Patient - History of Present Illness Narrative History of Present Illness (Text): 09/08/17 16:10 81yr old female with a history of hypertension presents today with generalized weakness over the past 3 days. Patient states she just isn't feeling right. Patient states she also noticed bruising along the left arm that she noticed 3 days ago. She denies any recent trauma or injury. Patient denies headache or blurred vision. Patient states occasionally she's been feeling "a little off" but does not say that she is feeling dizzy. She denies chest pain or shortness of breath. Patient states she takes asa daily. pt denies fever/chills. denies dysuria, but states maybe she has noticed some urinary frequency. no abdominal pain. no other complaints. Time/Duration: Other (3 days) Past Medical History - Provider Review Nursing Documentation Reviewed: Yes - Travel History Have you recently traveled outside [place] w/in the past 3 mons?: No - Infectious Disease Hx of Infectious Diseases: None - Reproductive Menopause: No - Cardiac Hx Cardiac Disorders: Yes (CAD, S/P PCI) Hx Hypertension: Yes - Pulmonary Hx Respiratory Disorders: Yes Hx Chronic Obstructive Pulmonary Disease (COPD): Yes - Neurological Hx Neurological Disorder: No (denies) HX Cerebrovascular Accident: No - HEENT Hx HEENT Disorder: No (WEARS RX GLASSES) - Renal Hx Renal Disorder: No (denies) Hx Renal Failure: No - Endocrine/Metabolic Hx Endocrine Disorders: No (denies) - Hematological/Oncological Hx Blood Disorders: No (denies) - Integumentary Hx Dermatological Disorder: Yes Other/Comment: RIGHT MASTECTOMY - Musculoskeletal/Rheumatological Hx Musculoskeletal Disorders: No (denies) Hx Falls: No - Gastrointestinal Hx Gastrointestinal Disorders: Yes (colon ca,colon resection) - Genitourinary/Gynecological Hx Genitourinary Disorders: No (denies) Hx Reproductive Disorders: No - Psychiatric Hx Psychophysiologic Disorder: No Hx Emotional Abuse: No Hx Physical Abuse: No Hx Substance Use: No - Surgical History Hx Mastectomy: Yes (right) Other/Comment: colon ca - colon resection - Anesthesia Hx Anesthesia: Yes Hx Anesthesia Reactions: No Hx Malignant Hyperthermia: No - Suicidal Assessment Feels Threatened In Home Enviroment: No Family/Social History - Physician Review Nursing Documentation Reviewed: Yes Family/Social History: Unknown Family HX Smoking Status: Former Smoker Hx Alcohol Use: No (social) Hx Substance Use: No Allergies/Home Meds Allergies/Adverse Reactions: Allergies Penicillins Allergy (Severe, Verified 03/09/17 20:46) RASH zolpidem Allergy (Mild, Verified 03/09/17 20:46) CONFUSION CONFUSION,AGITATION-PT CAN TAKE BRAND NAME AMBIEN Home Medications: Home Meds Medication Instructions Recorded Confirmed amLODIPine [Norvasc] 5 mg PO DAILY 06/14/15 03/09/17 Metoprolol Tartrate [Lopressor] 50 mg PO BRKDIN 07/09/16 03/09/17 Atorvastatin [Lipitor] 20 mg PO QPM 03/05/17 03/09/17 Review of Systems - Review of Systems Constitutional: Fatigue. absent: Fevers Eyes: absent: Vision Changes Respiratory: absent: SOB, Cough Cardiovascular: absent: Chest Pain, Palpitations Gastrointestinal: absent: Abdominal Pain, Nausea, Vomiting Genitourinary Female: Frequency. absent: Dysuria, Hematuria, Vaginal Bleeding, Vaginal Discharge Musculoskeletal: absent: Back Pain, Neck Pain Skin: Other (left forearm ecchymosis; ). absent: Rash, Pruritis Neurological: absent: Headache, Dizziness Psychiatric: absent: Anxiety, Depression, Suicidal Ideation Physical Exam Vital Signs Reviewed: Yes Vital Signs Temp Pulse Resp BP Pulse Ox 09/08/17 15:25 72 17 196/93 H 99 09/08/17 14:15 97.7 F 89 18 232/79 H 99 Temperature: Afebrile Blood Pressure: Hypertensive Pulse: Regular Respiratory Rate: Normal Appearance: Positive for: Well-Appearing, Non-Toxic, Comfortable Pain Distress: None Mental Status: Positive for: Alert and Oriented X 3 - Systems Exam Head: Present: Atraumatic Pupils: Present: PERRL Extroacular Muscles: Present: EOMI Conjunctiva: Present: Normal Ears: Present: Normal Mouth: Present: Moist Mucous Membranes Pharnyx: Present: Normal. No: ERYTHEMA, EXUDATE Neck: Present: Normal Range of Motion Respiratory/Chest: Present: Clear to Auscultation, Good Air Exchange. No: Respiratory Distress, Accessory Muscle Use Cardiovascular: Present: Regular Rate and Rhythm, Normal S1, S2. No: Murmurs Abdomen: No: Tenderness, Distention, Rebound, Guarding Back: Present: Normal Inspection Upper Extremity: Present: Normal ROM, NORMAL PULSES, Neurovascularly Intact, Capillary Refill < 2s, Other (left forearm; there is ecchymosis noted along the posterior aspect of the forearm; no edema, no tenderness. full rom of arm/ elbow/hand, fingers. ). No: Tenderness, Swelling, Erythema Neurological: Present: GCS=15, Speech Normal Skin: Present: Warm, Dry, Normal Color Psychiatric: Present: Alert, Oriented x 3 Medical Decision Making ED Course and Treatment: 09/08/17 16:34 81-year-old female presents today with generalized weakness, lightheadedness and ecchymosis to the left forearm 3 days CBC: wnl CMP: wnl Troponin : wnl BNP: 581 INR: 1.03 EKG shows sinus rhythm with first-degree AV block at 68 bpm left axis deviation left bundle branch block Chest x-ray: No infiltrate or effusion positive right sided breast implant noted CAT scan of the head:FINDINGS: HEMORRHAGE: No intracranial hemorrhage. BRAIN: Moderate diffuse/confluent chronic white matter ischemic changes seen extending peripherally into the deep and subcortical white matter both cerebral hemispheres. There is also extension of these changes into the white matter tracts of both basal nuclei. Additionally, there also appears to be ischemic changes within the brainstem. Note that the possibility of a small hyperacute infarct cannot be excluded. No obvious parenchymal nor extra-axial mass or collection seen on this noncontrast study. Moderate to fairly significant central volume loss evidenced by disproportionate enlargement of the ventricles compared sulci. Vascular calcifications of the carotid siphons and vertebral arteries. VENTRICLES: No obstructive hydrocephalus. CALVARIUM: Unremarkable. PARANASAL SINUSES: Polypoid like mucosal thickening and or mucous retention cyst formation left maxillary sinus. MASTOID AIR CELLS: Unremarkable as visualized. No inflammatory changes. OTHER FINDINGS: Left-sided cataract surgery. IMPRESSION: Moderate diffuse/confluent chronic white matter ischemic changes seen extending peripherally into the deep and subcortical white matter both cerebral hemispheres. There is also extension of these changes into the white matter tracts of both basal nuclei. Additionally, there also appears to be ischemic changes within the brainstem. Note that the possibility of a small hyperacute infarct cannot be excluded. Moderate to fairly significant central volume loss evidenced by disproportionate enlargement of the ventricles compared sulci. Urinalysis: within normal limits Asa given Po Case was discussed in depth with Dr. Wu will admit to remote tele for dizziness, near syncope, generalized weakness. all aspects of this case were discussed the attending of record. Impression: Generalized weakness, dizziness admit remote tele - Lab Interpretations Lab Results: 09/08/17 15:20 09/08/17 15:20 Lab Results 09/08/17 15:50: PT 11.7, INR 1.03, APTT 28.6 09/08/17 15:35: Urine Color Yellow, Urine Appearance Clear, Urine pH 7.0, Ur Specific [place] 1.010, Urine Protein Negative, Urine Glucose (UA) Negative, Urine Ketones Negative, Urine Blood Negative, Urine Nitrate Negative, Urine Bilirubin Negative, Urine Urobilinogen 0.2, Ur Leukocyte Esterase Negative 09/08/17 15:20: WBC 6.5, RBC 4.53, Hgb 13.7, Hct 39.6, MCV 87.4 D, MCH 30.2, MCHC 34.6, RDW 14.0, Plt Count 158, MPV 9.7, Gran % 72.0 H, Lymph % (Auto) 18.4 L, Dyer % (Auto) 8.5 H, Eos % (Auto) 0.8 L, Baso % (Auto) 0.3, Gran # 4.67, Lymph # (Auto) 1.2, Dyer # (Auto) 0.6, Eos # (Auto) 0.1, Baso # (Auto) 0.02 09/08/17 15:20: Sodium 140, Potassium 4.1, Chloride 105, Carbon Dioxide 28, Anion Gap 12, BUN 20, Creatinine 0.5 L, Est GFR ( Amer) > 60, Est GFR ( Non-Af Amer) > 60, Random Glucose 94, Calcium 9.2, Total Bilirubin 1.0, AST 30, ALT 34, Alkaline Phosphatase 110, Lactate Dehydrogenase 482, Total Creatine Kinase 87, Troponin I < 0.01, NT-Pro-B Natriuret Pep 581 H, Total Protein 6.5, Albumin 4.0, Globulin 2.4, Albumin/Globulin Ratio 1.6 - RAD Interpretation Radiology Orders: 09/08/17 14:58 CHEST PORTABLE [RAD] Stat FOREARM LEFT [RAD] Stat 09/08/17 16:19 HEAD W/O CONTRAST [CT] Stat - Medication Orders Current Medication Orders: Sodium Chloride (Sodium Chloride 0.9%) 1,000 mls @ 75 mls/hr IV .[id number] PETEY Discontinued Medications Aspirin (Aspirin) 325 mg PO STAT STA Stop: 09/08/17 17:26 Disposition/Present on Arrival - Present on Arrival Any Indicators Present on Arrival: No History of DVT/PE: No History of Uncontrolled Diabetes: No Urinary Catheter: No History of Decub. Ulcer: No History Surgical Site Infection Following: None - Disposition Have Diagnosis and Disposition been Completed?: Yes Diagnosis: Dizziness, Generalized weakness Disposition: HOSPITALIZED Disposition Time: 17:34 Patient Plan: Observation Patient Problems: Current Active Problems Problem Status Onset Dizziness Acute Generalized weakness Acute Condition: FAIR Discharge Instructions (ExitCare): Weakness (ED) Referrals: Arcelia Wu MD [Primary Care Provider] - Follow up with primary Forms: Jike Xueyuan (Czech)
--- NOTE | 2017-09-08 17:10 | RAD ---
Date of service: 09/08/2017 PROCEDURE: Radiographs of the Left Forearm HISTORY: ecchymosis COMPARISON: None available. TECHNIQUE: Frontal and lateral views obtained. FINDINGS: BONES: No fracture or destructive lesion. JOINT SPACES: Degenerative changes. OTHER FINDINGS: None. IMPRESSION: No demonstrated fracture or dislocation. Degenerative changes.
--- NOTE | 2017-09-08 17:11 | RAD ---
Date of service: 09/08/2017 HISTORY: fatigue COMPARISON: Chest radiograph dated 03/14/2017. FINDINGS: LUNGS: No active pulmonary disease. PLEURA: No significant pleural effusion identified, no pneumothorax apparent. CARDIOVASCULAR: Atherosclerotic aortic calcifications. Cardiomediastinal silhouette within normal limits. OSSEOUS STRUCTURES: Unchanged. VISUALIZED UPPER ABDOMEN: Normal. OTHER FINDINGS: Stable asymmetry of the breasts. IMPRESSION: No active disease.
--- NOTE | 2017-09-08 17:12 | CT ---
Date of service: 09/08/2017 PROCEDURE: CT HEAD WITHOUT CONTRAST. HISTORY: lightheaded COMPARISON: Comparison made with prior study dated 09/08/2017. TECHNIQUE: Axial computed tomography images were obtained through the head/brain without intravenous contrast. Radiation dose: Total exam DLP = 871.01 mGy-cm. This CT exam was performed using one or more of the following dose reduction techniques: Automated exposure control, adjustment of the mA and/or kV according to patient size, and/or use of iterative reconstruction technique. FINDINGS: HEMORRHAGE: No intracranial hemorrhage. BRAIN: Moderate diffuse/confluent chronic white matter ischemic changes seen extending peripherally into the deep and subcortical white matter both cerebral hemispheres. There is also extension of these changes into the white matter tracts of both basal nuclei. Additionally, there also appears to be ischemic changes within the brainstem. Note that the possibility of a small hyperacute infarct cannot be excluded. No obvious parenchymal nor extra-axial mass or collection seen on this noncontrast study. Moderate to fairly significant central volume loss evidenced by disproportionate enlargement of the ventricles compared sulci. Vascular calcifications of the carotid siphons and vertebral arteries. VENTRICLES: No obstructive hydrocephalus. CALVARIUM: Unremarkable. PARANASAL SINUSES: Polypoid like mucosal thickening and or mucous retention cyst formation left maxillary sinus. MASTOID AIR CELLS: Unremarkable as visualized. No inflammatory changes. OTHER FINDINGS: Left-sided cataract surgery. IMPRESSION: Moderate diffuse/confluent chronic white matter ischemic changes seen extending peripherally into the deep and subcortical white matter both cerebral hemispheres. There is also extension of these changes into the white matter tracts of both basal nuclei. Additionally, there also appears to be ischemic changes within the brainstem. Note that the possibility of a small hyperacute infarct cannot be excluded. Moderate to fairly significant central volume loss evidenced by disproportionate enlargement of the ventricles compared sulci.
--- NOTE | 2017-09-08 17:18 | CARD ---
APPROVED REPORT Date of service: 09/08/2017 EKG Measurement Heart [id number] <Conclusion> Sinus rhythm with 1st degree AV block Left axis deviation Left bundle branch block Abnormal ECG
[2017-09-08] MEDS ORDERED: Levalbuterol 0.63 MG/3 ML Inhal Soln UD IH STA (17:24)
[2017-09-08] MEDS: Sodium Chloride 0.9% 1,000 ML IV SCH (17:35)
[2017-09-08] MEDS ORDERED: Pneumococcal 23-Valent Vaccine IM ONE (22:29)
[2017-09-09] MEDS: Sodium Chloride 0.9% 1,000 ML IV SCH (07:05)
[2017-09-09] MEDS ORDERED: MethylPREDNISolone 40 mg Vial IVP STA (08:46)
[2017-09-09] MEDS: Aspirin 325 mg EC Tablets PO SCH (09:59)
[2017-09-09] MEDS: cefTRIAXone 1 gm 1 GM/100 ML BAG IVPB SCH (10:00)
[2017-09-09] MEDS: Levalbuterol 0.63 MG/3 ML Inhal Soln UD IH SCH ×2 (13:38→19:50)
[2017-09-09] MEDS: MethylPREDNISolone 40 mg Vial IVP SCH (22:02)
[2017-09-10] MEDS: Levalbuterol 0.63 MG/3 ML Inhal Soln UD IH SCH ×4 (01:54→20:00)
[2017-09-10] MEDS: MethylPREDNISolone 40 mg Vial IVP SCH ×3 (06:18→21:19)
[2017-09-10] MEDS: Aspirin 325 mg EC Tablets PO SCH (10:41)
[2017-09-10] MEDS: cefTRIAXone 1 gm 1 GM/100 ML BAG IVPB SCH (11:34)
--- NOTE | 2017-09-10 15:07 | US ---
PROCEDURE: Bilateral carotid artery duplex ultrasound HISTORY: Carotid stenosis PHYSICIAN(S): Tripp Mendes MD. TECHNIQUE: Duplex sonography and color-flow Doppler were used to evaluate the carotid bifurcations and limited segments of the vertebral arteries bilaterally. FINDINGS: There is moderate to extensive heterogeneous echogenic plaque with shadowing, greater on the left than the right. The peak systolic velocity in the proximal right internal carotid artery is 103 cm/sec. This corresponds to a 20 to 39% proximal right ICA stenosis. Normal systolic velocities are noted in the proximal right external carotid artery. There is antegrade flow in the right vertebral artery. The origin of the left ICA is somewhat obscured by shadowing plaque The peak systolic velocity in the proximal left internal carotid artery is 184 cm/sec. This corresponds to a 60-79 percent proximal left ICA stenosis. Moderately elevated systolic velocities are noted in the proximal left external carotid artery. There is antegrade flow in the left vertebral artery. IMPRESSION: 1. 60-79 percent proximal left ICA stenosis 2. 20-39 percent proximal right ICA stenosis 3. Antegrade flow in both vertebral arteries.
--- NOTE | 2017-09-10 15:12 | PN ---
DATE: 09/10/2017 SUBJECTIVE: This 87-year-old female was examined at her bedside and this case was reviewed in detail with her nurse, Amber Burciaga, registered nurse. The patient remains hospitalized status post admission for exacerbation of chronic obstructive pulmonary disease and dizziness and lightheadedness with an unremarkable CT of the head and potline monitor showing normal sinus rhythm. A carotid ultrasound that was done for completeness sake in this patient's status post endarterectomy and history of moderate carotid stenosis remains pending. At present, she is breathing more easily with pulmonary toiletry. PHYSICAL EXAMINATION: VITAL SIGNS: On physical exam has a temperature of 97.4, respirations 20, pulse 65 and blood pressure 180/70 with a pulse ox of 94% on room air. HEENT: Head normocephalic, atraumatic. Eyes: No icterus. Ears: Clear. Throat: Noninjected. NECK: Supple. HEART: Regular S1, S2. LUNGS: Have rhonchi and occasional wheezing that clears with coughing. ABDOMEN: Soft. EXTREMITIES: No edema. Her left forearm ecchymosis is contained and improving. VASCULAR: Legs warm to touch. PSYCHOLOGICAL: Alert and oriented x3. NEURO: Grossly intact. LABORATORY DATA: White count 6500, hemoglobin 13.7, hematocrit 39.6, platelets 158,000. Sodium 140, K 4.1, chloride 105, bicarb 28, BUN 20, creatinine 0.5, random blood sugar 94, bilirubin 1, AST 30, ALT 34, alk phos 110. Urinalysis is unremarkable. Chest x-ray was reviewed. It shows no infiltrate, no effusion, no pneumonia, no congestive heart failure. Left forearm x-rays were reviewed. It shows no evidence of fracture, but is consistent with degenerative arthritic changes. Head CT was reviewed, it is consistent with ischemic changes of the brain. No obvious stroke or hemorrhage. Carotid ultrasound is pending. EKG was reviewed. It is consistent with normal sinus rhythm with nonspecific ST-T wave changes. IMPRESSION: This 87-year-old female with exacerbation of chronic obstructive pulmonary disease, chronic hypertension, chronic insomnia, history of lung cancer on PET scanning that is stable and being monitored by Dr. Fernando Fuller from Oncology under no chemotherapy at the present time with history of chronic hypertension, hyperlipidemia, degenerative arthritis and deconditioning. PLAN: The plan as discussed with the patient will be to continue Ambien 5 mg p.o. at bedtime p.r.n. sleep, clonidine 0.1 mg p.o. every 4 hours p.r.n. accelerated hypertension if systolic blood pressure should be greater than 160 or diastolic blood pressure should be greater than 100, Ecotrin 325 mg p.o. daily, Lipitor 40 mg p.o. daily, Lopressor 50 mg p.o. b.i.d., Solu-Medrol will be dose reduced to 30 mg IV every 12 and Xopenex inhalational therapy will continue at 0.63 mg every 6 hours. Her IV fluids will be discontinued. She will be ambulated and based on the results of her carotid ultrasound, additional testing or discharge will be entertained. Greater than 35 minutes was spent in the care and management, review of labs, orders, x-rays and discussion of this patient's care with herself and nursing. All questions were answered. Arcelia Wu MD MTDDilan
[2017-09-11] MEDS: Levalbuterol 0.63 MG/3 ML Inhal Soln UD IH SCH ×2 (01:40→07:34)
--- NOTE | 2017-09-11 08:11 | HP ---
DATE OF EXAM: 09/09/2017 HISTORY OF PRESENT ILLNESS: This 87-year-old female was examined at her bedside and this case was reviewed in detail with herself and her nurse, Tacos Villegas, registered nurse. The patient was admitted to the [facility] with complaints of lightheadedness and exacerbation of chronic obstructive pulmonary disease. Of note, the patient noted a new onset of a left upper arm and forearm ecchymosis extending from her wrist to her elbow. She reports that it has diminished significantly since admission and at present, denies any fever, chills, chest pain or shortness of breath. The patient's past medical history is extensive and includes atherosclerotic heart disease stable, history of coronary artery stents, chronic insomnia, chronic hypertension, hyperlipidemia, history of carotid artery endarterectomy, breast cancer, lung cancer, chronic obstructive pulmonary disease and degenerative arthritis, and outpatient medications included Ambien 5 mg p.o. at bedtime p.r.n. insomnia, Ecotrin 325 mg p.o. daily, Lipitor 40 mg p.o. daily, Lopressor 50 mg p.o. b.i.d. with ALLERGY TO PENICILLIN. REVIEW OF SYSTEMS: CONSTITUTIONAL REVIEW: The patient denied any fever or chills. HEAD REVIEW: Denied any headache or slurred speech or weakness. EYE REVIEW: No change in visual acuity. EAR REVIEW: No hearing loss. THROAT REVIEW: No swallowing difficulty. NECK REVIEW: No stiffness. CARDIAC REVIEW: Denied any chest pain or palpitation. PULMONARY: Has cough with mild shortness of breath and wheezing. ABDOMEN: No hematemesis. No melena. : No dysuria. SKIN: Ecchymosis of her left forearm, improved since admission. ENDOCRINOLOGIC: Hyperlipidemia. No knowledge of diabetes mellitus. HEMATOLOGICAL: She has history of breast cancer and lung cancer, on no chemotherapy at present under the direction of Dr. Fernando Fuller from Hematology/Oncology. VASCULAR: Chronic stable claudication, for which she follows with Dr. Rito Wlater, vascular surgeon. OUTPATIENT MEDICATIONS: Previously outlined. FAMILY HISTORY: Noncontributory. SOCIAL HISTORY: She is a nondrinker, nonsmoker, non IV drug misuser. PHYSICAL EXAMINATION: VITAL SIGNS: She is in a normal sinus rhythm on the monitoring coordinator with temperature 97.4, respirations 20, pulse 59 and blood pressure 162/68. Pulse ox 93% on room air. HEENT: Head normocephalic, atraumatic. Eyes: No icterus. Ears: Clear. Throat: Noninjected. NECK: Supple. HEART: Regular S1, S2. No pathological rubs, murmurs or gallops. LUNGS: With occasional expiratory wheezing and rhonchi. ABDOMEN: Soft. EXTREMITIES: No edema. Left forearm ecchymosis is fading. VASCULAR: Legs warm to touch. Excellent pulse in both wrists. SKIN: No ulcers. No cellulitis. NEUROLOGICAL: Grossly intact. PSYCHOLOGICAL: Alert and oriented x3. LABORATORY DATA: White count 6500, hemoglobin 13.7, hematocrit 39.6, platelets of 158,000. PT/INR 1.03, PTT 28.6. Sodium 140, K 4.1, chloride 105, bicarb 28, BUN 20, creatinine 0.5, random blood sugar 94. Bilirubin 1, AST 30, ALT 34, alkaline phosphatase 110. CPK 87. Troponin less than 0.01. BNP 581, albumin 4. Urinalysis unremarkable. Head CT was reviewed. It shows ischemic changes of both cerebral hemispheres and brainstem. EKG shows normal sinus rhythm with left anterior block and left bundle branch block. Left forearm x-rays were reviewed, it is consistent with degenerative arthritis. There is no evidence of fracture. There are degenerative arthritic changes noted and chest x-rays is consistent with chronic obstructive pulmonary disease. No infiltrate, no pneumonia, no CHF, no pleural effusion. IMPRESSION: This is an 87-year-old female with a left forearm ecchymosis in the setting of chronic anticoagulation with Ecotrin and comorbidities of chronic insomnia, chronic hypertension, hyperlipidemia, stable atherosclerotic heart disease, chronic obstructive pulmonary disease, history of breast and lung cancers, now with admission with lightheadedness and head CT showing ischemic changes involving both cerebral hemispheres and brain stem. PLAN: As discussed with the patient and nurse, Tacos Villegas, will be to continue Xopenex inhalational therapy 0.63 mg every 6 hours around the clock, Solu-Medrol 30 mg IV every 8 hours, q. eight, 0.9 saline at 75 mL/hour, Rocephin 1 g IV every 24 hours, Lopressor 50 mg p.o. b.i.d., Lipitor 40 mg p.o. at dinnertime, Ecotrin 325 mg p.o. daily, clonidine 0.1 mg p.o. every 4 hours p.r.n. accelerated hypertension if systolic blood pressure should be greater than 160 or diastolic blood pressure should be greater than 100, Ambien 5 mg p.o. at bedtime p.r.n. insomnia. I have ordered up blood and urine cultures for completeness sake. She will have a carotid ultrasound to compare with previous reports. She continues on heart-healthy diet, out of bed to chair with assistance and is ordered to have physical therapy for reconditioning and gait training. All of the above was discussed in detail with the patient and Nursing. Greater than 75 minutes was spent in the care management, review of labs, orders, x-rays and outlining of medication and orders for this patient today. All questions were answered. Arcelia Wu MD MTDD
[2017-09-11 08:36] VITALS: BP 201/76; RESP 18; TEMP 97.4; O2SAT 99
[2017-09-11] MEDS: Aspirin 325 mg EC Tablets PO SCH (09:41)
[2017-09-11] MEDS: MethylPREDNISolone 40 mg Vial IVP SCH (09:41)
[2017-09-11 11:55] VITALS: PULSE 57
--- NOTE | 2017-09-12 02:49 | DS ---
FINAL DIAGNOSES: Lightheadedness, improved; chronic stable carotid artery disease; left forearm subcutaneous ecchymosis, improving; chronic obstructive pulmonary disease, stable; chronic insomnia; chronic hypertension; hyperlipidemia; history of old breast cancer and lung cancer, stable. DISPOSITION: Home. FOLLOWUP: Follow up in my office as scheduled. Follow up with Dr. Fernando Fuller, Hematology/Oncology. DISCHARGE MEDICATIONS: Include Ambien 5 mg p.o. at bedtime p.r.n. insomnia, Lopressor 50 mg p.o. b.i.d., Lipitor 20 mg daily and Ecotrin 325 mg p.o. daily. SUMMARY: This 87-year-old female was admitted to [facility] with lightheadedness and newly noted left forearm ecchymosis with past medical history as listed above. She underwent x-rays of her left forearm that showed no fracture, but evidence of chronic degenerative arthritis and she did have a carotid ultrasound for completeness sake because her symptoms of lightheadedness and history of carotid artery stenosis with her results reviewed with Dr. Tripp Mendes from Interventional Radiology and report showing chronic stable carotid artery disease with chronic 60%-79% proximal left internal carotid artery stenosis and 20% right internal carotid artery stenosis status post endarterectomy. At the time of discharge, her temperature was 97.4, respirations 18, pulse 69 and blood pressure was 157/60 with a pulse ox of 96% room air. White count 6500, hemoglobin 13.7, hematocrit 39.6, platelets 158,000. Sodium 140, K 4.1, chloride 105, bicarb 28, BUN 20, creatinine 0.5, random blood sugar 94. Patient will be monitored in my office as an outpatient and has been advised for any change in signs and symptoms to present directly to [facility] ER. Arcelia Wu MD
== END 2017-09-11 12:40 | disposition home or self-care (01) | DRG 192 ==
LOC: ED 13:53 → ERH 17:30 → 3RSO 20:25 → OBSVTOIN 09-10 14:27
PROVIDERS: ADMIT Internal Medicine; ATTEND Internal Medicine
DX: J44.1 Chronic obstructive pulmonary disease with (acute) exacerbation (principal); R42 Dizziness and giddiness; E78.5 Hyperlipidemia, unspecified; I10 Essential (primary) hypertension; I25.10 Atherosclerotic heart disease of native coronary artery without angina pectoris; M19.90 Unspecified osteoarthritis, unspecified site; F51.04 Psychophysiologic insomnia; Z79.01 Long term (current) use of anticoagulants; Z79.82 Long term (current) use of aspirin; Z85.038 Personal history of other malignant neoplasm of large intestine; Z95.5 Presence of coronary angioplasty implant and graft; Z85.118 Personal history of other malignant neoplasm of bronchus and lung; Z85.3 Personal history of malignant neoplasm of breast; Z88.0 Allergy status to penicillin; Z90.11 Acquired absence of right breast and nipple

== ENCOUNTER 2018-05-02 12:15 | Outpatient (CLI) | payer MEDICARE, OTHER | END 2018-05-02 12:16 | disposition home or self-care (01) | LOC: RAD 12:16 ==

== ENCOUNTER 2018-05-28 14:13 | Outpatient (CLI) | payer MEDICARE, OTHER | END 2018-05-28 14:14 | disposition home or self-care (01) | LOC: RAD 14:13 ==

== ENCOUNTER 2018-06-20 05:26 | Outpatient (CLI) | payer MEDICARE, OTHER | END 2018-06-20 05:27 | disposition home or self-care (01) | LOC: PET-BROA 05:26 | DX: C34.12 Malignant neoplasm of upper lobe, left bronchus or lung (principal); C78.01 Secondary malignant neoplasm of right lung ==